=== PATIENT | male | born 1960 | race American Indian/Alaskan Native ===

== ENCOUNTER 2020-04-28 08:50 | Inpatient (IN) | payer BC ==
[2020-04-28] MEDS ORDERED: SODIUM CHLORIDE 0.9% 1000 ML 1,000 ML IV ONE (09:25)
[2020-04-28] MEDS ORDERED: ONDANSETRON 4 MG/2 ML INJ IV ONE (09:25)
--- NOTE | 2020-04-28 09:41 | Emergency Department Report ---
HPI - General Chief Complaint: Weakness Time Seen by Provider: 04/28/20 08:57 - HPI HPI: This is a 59-year-old -[place] male presents to the emergency department via EMS from home with a complaint of a 2-week history of generalized weakness, mixed dry and productive cough, intermittent shortness of breath, subjective fever, nausea with vomiting, decreased appetite, loss of taste and smell. The patient had a COVID-19 test done last Wednesday but has not yet received the results. He says that there are people at home with similar symptoms but they also have not yet received the results of the Covid test. He has a past medical history of [id number] diabetes and hypertension. No recent travel. Denies any tobacco or illicit drug use. He has not taken anything for his symptoms prior to presentation today. ED Past Medical Hx - Past Medical History Previous Medical History?: Yes Hx Hypertension: Yes Hx Diabetes: Yes - Social History Smoking Status: Never Smoker Substance Use Type: None ED Review of Systems ROS: Stated complaint: WEAKNESS Other details as noted in HPI Comment: All other systems reviewed and negative Constitutional: fever (Subjective), weakness Eyes: denies: eye pain, vision change ENT: denies: ear pain, throat pain Respiratory: cough, shortness of breath Cardiovascular: denies: chest pain, palpitations Gastrointestinal: nausea, vomiting. denies: abdominal pain Genitourinary: denies: dysuria, discharge Musculoskeletal: myalgia. denies: joint swelling Skin: denies: rash, lesions Neurological: denies: numbness, paresthesias Physical Exam - Physical Exam Vital Signs: Vital Signs 04/28/20 04/28/20 04/28/20 09:19 09:24 09:32 Temperature 98.7 F 98.7 F Pulse Rate 98 H 98 H Respiratory 20 20 20 Rate Blood Pressure 153/75 Blood Pressure 153/75 [Right] O2 Sat by Pulse 97 97 97 Oximetry Physical Exam: GENERAL: The patient is well-developed well-nourished. HENT: Normocephalic. Atraumatic. Patient has moist mucous membranes. EYES: Extraocular motions are intact. NECK: Supple. Trachea is midline. CHEST/LUNGS: Rhonchi heard bilaterally. Tachypnea but no accessory muscle use. A productive sounding cough heard during examination. HEART/CARDIOVASCULAR: Regular. There is no tachycardia. There is no murmur. ABDOMEN: Abdomen is soft, nontender. Patient has normal bowel sounds. SKIN: Skin is warm and dry. NEURO: The patient is awake, alert, and oriented. The patient is cooperative. The patient has no focal neurologic deficits. Normal speech. MUSCULOSKELETAL: There is no tenderness or deformity. There is no limitation range of motion. ED Course Vital Signs 04/28/20 04/28/20 04/28/20 09:19 09:24 09:32 Temperature 98.7 F 98.7 F Pulse Rate 98 H 98 H Respiratory 20 20 20 Rate Blood Pressure 153/75 Blood Pressure 153/75 [Right] O2 Sat by Pulse 97 97 97 Oximetry ED Medical Decision Making - Lab Data Result diagrams: 04/28/20 09:50 04/28/20 13:48 Lab Results 04/28/20 04/28/20 04/28/20 Range/Units 09:50 09:50 09:50 WBC 10.1 (4.5-11.0) K/mm3 RBC 3.02 L (3.65-5.03) M/mm3 Hgb 9.7 L (11.8-15.2) gm/dl Hct 28.3 L (35.5-45.6) % MCV 94 (84-94) fl MCH 32 (28-32) pg MCHC 35 H (32-34) % RDW 12.2 L (13.2-15.2) % Plt Count 353 (140-440) K/mm3 Lymph % (Auto) 8.9 L (13.4-35.0) % [place] % (Auto) 11.9 H (0.0-7.3) % Eos % (Auto) 4.4 H (0.0-4.3) % Baso % (Auto) 0.8 (0.0-1.8) % Lymph # (Auto) 0.9 L (1.2-5.4) K/mm3 [place] # (Auto) 1.2 H (0.0-0.8) K/mm3 Eos # (Auto) 0.4 (0.0-0.4) K/mm3 Baso # (Auto) 0.1 (0.0-0.1) K/mm3 Seg Neutrophils % 74.0 H (40.0-70.0) % Seg Neutrophils # 7.5 (1.8-7.7) K/mm3 Sodium 130 L (137-145) mmol/L Potassium 4.2 (3.6-5.0) mmol/L Chloride 93.9 L (98-107) mmol/L Carbon Dioxide 28 (22-30) mmol/L Anion Gap 12 mmol/L BUN 34 H (9-20) mg/dL Creatinine 1.1 (0.8-1.3) mg/dL Estimated GFR > 60 ml/min BUN/Creatinine Ratio 31 % Glucose 227 H (75-100) mg/dL Calcium 9.0 (8.4-10.2) mg/dL Total Bilirubin 0.80 (0.1-1.2) mg/dL AST 17 (5-40) units/L ALT 13 (7-56) units/L Alkaline Phosphatase 90 (35-129) units/L Troponin T < 0.010 (0.00-0.029) ng/mL Total Protein 7.4 (6.3-8.2) g/dL Albumin 3.0 L (3.9-5) g/dL Albumin/Globulin Ratio 0.7 % TSH 1.180 (0.270-4.200) mlU/mL - Radiology Data Radiology results: report reviewed, image reviewed interpreted by me: Chest x-ray shows patchy bilateral opacities concerning for pneumonia. No pneumothorax. No pleural effusions. CT angio chest INDICATION / CLINICAL INFORMATION: MAIN. TECHNIQUE: Axial CT images were obtained after injection of 100 cc of Omnipaque 350 IV contrast using CTA protocol. 3 plane MIP / 3D reconstructions were produced. All CT scans at this location are performed using CT dose reduction for ALARA by means of automated exposure control. COMPARISON: None available. FINDINGS: Following the injection of intravenous contrast, no filling defects are seen in the main pulmonary arteries or their branches. Extensive peripheral groundglass opacity is seen in both lungs. No enlarged mediastinal or hilar lymph nodes are identified. Other than degenerative change in the spine, no significant skeletal abnormality is seen. IMPRESSION: 1. No evidence of pulmonary embolus 2. Extensive peripheral bilateral groundglass opacity consistent with atypical or viral pneumonia - Medical Decision Making This patient presents to the emergency department with multiple complaints consistent with COVID-19 or a viral syndrome. Initially the patient had a room air pulse ox of about 94% and was placed on supplemental oxygen. During his ED course, we removed the supplemental oxygen and the patient went down to 90% without any exertion. Chest x-ray shows bilateral patchy groundglass opacities concerning for pneumonia and consistent with a viral or atypical pneumonia that is often seen with COVID-19. The patient was given some IV fluid resuscitation, Solu-Medrol, antibiotics. His initial labs show some leukopenia and mild hyperglycemia. COVID-19 labs were ordered and all came back elevated including D-dimer, LDH, CRP and ferritin levels. A CT angiography of the chest was completed that did not show any pulmonary embolism but once again shows diffuse groundglass opacities. Patient will be admitted to the hospital for further evaluation and treatment was accepted for admission by the hospitalist service. The patient was placed in patient isolation and droplet precautions immediately upon arrival to the main emergency department. I wore full PPE gear including a surgical hat, goggles, N95 mask, surgical mask, gown, and double gloves for every encounter. Critical Care Time: Yes Critical care time in (mins) excluding proc time.: 35 Critical care attestation.: If time is entered above; I have spent that time in minutes in the direct care of this critically ill patient, excluding procedure time. Critical care time was spent on this patient in doing his initial evaluation, multiple reevaluations, ordering and interpretation of labs and imaging, IV fluid resuscitation, IV steroids, IV antibiotics, supplemental oxygen for the hypoxia, multiple discussions with the patient. Critical Care Time: 35 minutes. ED Disposition Clinical Impression: Suspected 2019 novel coronavirus infection, Hypoxemia Bilateral pneumonia Qualifiers: Pneumonia type: due to unspecified organism Lung location: unspecified part of lung Qualified Code(s): J18.9 - Pneumonia, unspecified organism Disposition: -09 OP ADMIT IP TO THIS HOSP Is pt being admited?: Yes Condition: Serious Time of Disposition: 10:47
--- NOTE | 2020-04-28 09:54 | XRay Report ---
CHEST 1 VIEW 04/28/2020 8:48 AM INDICATION / CLINICAL INFORMATION: cough. COMPARISON: None available. FINDINGS: SUPPORT DEVICES: None. HEART / MEDIASTINUM: No significant abnormality. LUNGS / PLEURA: There are diffuse bilateral patchy pulmonary opacities. No pneumothorax. ADDITIONAL FINDINGS: No significant additional findings. IMPRESSION: 1. Diffuse patchy bilateral pulmonary opacities are concerning for an infectious process. Viral and a typical etiologies should be considered. Signer Name: Jon King MD Signed: 04/28/2020 9:50 AM Workstation Name: [id number]
[2020-04-28 09:57] LABS: Basophils # (Auto) 0.1 K/mm3 (0.0-0.1); Basophils % (Auto) 0.8 % (0.0-1.8); Eosinophils # (Auto) 0.4 K/mm3 (0.0-0.4); Eosinophils % (Auto) 4.4 % (0.0-4.3); Hematocrit 28.3 % (35.5-45.6); Hemoglobin 9.7 gm/dl (11.8-15.2); Lymphocytes # (Auto) 0.9 K/mm3 (1.2-5.4); Lymphocytes % (Auto) 8.9 % (13.4-35.0); Mean Corpuscular HGB Conc 35 % (32-34); Mean Corpuscular Volume 94 fl (84-94); Monocytes # (Auto) 1.2 K/mm3 (0.0-0.8); Monocytes % (Auto) 11.9 % (0.0-7.3); Platelet Count 353 K/mm3 (140-440); Red Blood Count 3.02 M/mm3 (3.65-5.03); Red Cell Distribution Width 12.2 % (13.2-15.2)
[2020-04-28] MEDS ORDERED: methylPREDNISolone Sod Succinate 125 MG/2 ML INJ IV ONE (10:07)
[2020-04-28] MEDS ORDERED: AZITHROMYCIN/NS 500 MG/250 ML 500 MG/250 ML BAG IV ONE (10:07)
[2020-04-28 10:21] LABS: Alanine Aminotransferase 13 units/L (7-56); BUN/Creatinine Ratio 31; Blood Urea Nitrogen 34 mg/dL (9-20); Hemolysis Index 6
[2020-04-28] MEDS ORDERED: DEXTROSE 50% IN WATER (25GM) 50 ML SYRINGE IV PRN (11:40)
--- NOTE | 2020-04-28 11:42 | History and Physical Report ---
History of Present Illness Date of examination: 04/28/20 Date of admission: 04/28 Chief complaint: Shortness of breath History of present illness: 60-year-old male with a medical history of hypertension, diabetes presented to emergency room with chief complaint of generalized weakness and shortness of breath. Patient states that symptoms started about 2 weeks prior to presentation. He initially started having productive cough, fever, nausea with vomiting, decreased appetite, loss of taste and smell and symptoms started later progressed to problems breathing about a week prior to presentation. Patient had a Covid test performed on Wednesday [04/23] and results still pending as per patient. He mentions that some family members have similar symptoms and they have not been diagnosed with Covid yet as results are still pending. He denies any chest pain or palpitations. Past History Past Medical History: diabetes, hypertension Past Surgical History: No surgical history Social history: no significant social history Family history: no significant family history Medications and Allergies Allergies Allergy/AdvReac Type Severity Reaction Status Date / Time No Known Allergies Allergy Verified 04/28/20 11:42 Review of Systems All systems: negative (Shortness of breath with exertion) Exam - Constitutional Vitals: Temp Pulse Resp BP Pulse Ox 98.7 F 98 H 20 153/75 97 04/28/20 09:24 04/28/20 09:24 04/28/20 09:32 04/28/20 09:24 04/28/20 09:32 General appearance: Present: no acute distress, well-nourished - EENT Eyes: Present: PERRL ENT: hearing intact, clear oral mucosa - Neck Neck: Present: supple, normal ROM - Respiratory Respiratory effort: normal Respiratory: bilateral: CTA - Cardiovascular Heart Sounds: Present: S1 & S2. Absent: rub, click - Extremities Extremities: pulses symmetrical, No edema Peripheral Pulses: within normal limits - Abdominal General gastrointestinal: Present: soft, non-tender, non-distended, normal bowel sounds Male genitourinary: Present: normal - Integumentary Integumentary: Present: clear, warm, dry - Musculoskeletal Musculoskeletal: gait normal, strength equal bilaterally - Psychiatric Psychiatric: appropriate mood/affect, intact judgment & insight - Neurologic Neurologic: CNII-XII intact, moves all extremities HEART Score - HEART Score Troponin: Troponin T < 0.010 ng/mL (0.00-0.029) 04/28/20 09:50 Results - Labs CBC & Chem 7: 04/28/20 09:50 04/28/20 09:50 Labs: Laboratory Last Values WBC 10.1 K/mm3 (4.5-11.0) 04/28/20 09:50 RBC 3.02 M/mm3 (3.65-5.03) L 04/28/20 09:50 Hgb 9.7 gm/dl (11.8-15.2) L 04/28/20 09:50 Hct 28.3 % (35.5-45.6) L 04/28/20 09:50 MCV 94 fl (84-94) 04/28/20 09:50 MCH 32 pg (28-32) 04/28/20 09:50 MCHC 35 % (32-34) H 04/28/20 09:50 RDW 12.2 % (13.2-15.2) L 04/28/20 09:50 Plt Count 353 K/mm3 (140-440) 04/28/20 09:50 Lymph % (Auto) 8.9 % (13.4-35.0) L 04/28/20 09:50 [place] % (Auto) 11.9 % (0.0-7.3) H 04/28/20 09:50 Eos % (Auto) 4.4 % (0.0-4.3) H 04/28/20 09:50 Baso % (Auto) 0.8 % (0.0-1.8) 04/28/20 09:50 Lymph # (Auto) 0.9 K/mm3 (1.2-5.4) L 04/28/20 09:50 [place] # (Auto) 1.2 K/mm3 (0.0-0.8) H 04/28/20 09:50 Eos # (Auto) 0.4 K/mm3 (0.0-0.4) 04/28/20 09:50 Baso # (Auto) 0.1 K/mm3 (0.0-0.1) 04/28/20 09:50 Seg Neutrophils % 74.0 % (40.0-70.0) H 04/28/20 09:50 Seg Neutrophils # 7.5 K/mm3 (1.8-7.7) 04/28/20 09:50 Sodium 130 mmol/L (137-145) L 04/28/20 09:50 Potassium 4.2 mmol/L (3.6-5.0) 04/28/20 09:50 Chloride 93.9 mmol/L (98-107) L 04/28/20 09:50 Carbon Dioxide 28 mmol/L (22-30) 04/28/20 09:50 Anion Gap 12 mmol/L 04/28/20 09:50 BUN 34 mg/dL (9-20) H 04/28/20 09:50 Creatinine 1.1 mg/dL (0.8-1.3) 04/28/20 09:50 Estimated GFR > 60 ml/min 04/28/20 09:50 BUN/Creatinine Ratio 31 % 04/28/20 09:50 Glucose 227 mg/dL (75-100) H 04/28/20 09:50 Calcium 9.0 mg/dL (8.4-10.2) 04/28/20 09:50 Total Bilirubin 0.80 mg/dL (0.1-1.2) 04/28/20 09:50 AST 17 units/L (5-40) 04/28/20 09:50 ALT 13 units/L (7-56) 04/28/20 09:50 Alkaline Phosphatase 90 units/L (35-129) 04/28/20 09:50 Lactate Dehydrogenase 307 units/L (91-180) H 04/28/20 10:49 Troponin T < 0.010 ng/mL (0.00-0.029) 04/28/20 09:50 C-Reactive Protein 13.00 mg/dL (0.00-1.30) H 04/28/20 10:49 Total Protein 7.4 g/dL (6.3-8.2) 04/28/20 09:50 Albumin 3.0 g/dL (3.9-5) L 04/28/20 09:50 Albumin/Globulin Ratio 0.7 % 04/28/20 09:50 TSH 1.180 mlU/mL (0.270-4.200) 04/28/20 09:50 Christianson/IV: IV Catheter Type [Left Peripheral IV Antecubital] Assessment and Plan Assessment and plan: Acute hypoxic respiratory failure Possible COVID-19 pneumonia. COVID-19 test ordered Continue oxygen supplementation D-dimer elevated [more than 10,000]-we will start patient on Lovenox while we wait for confirmatory CTA chest. Bilateral pneumonia Chest x-ray showed bilateral infiltrates suggestive of possible COVID-19 pneumonia Likely COVID-19 pneumonia given symptoms, labs and chest x-ray. COVID-19 test ordered Start ceftriaxone and azithromycin x5 days. Check procalcitonin Dexamethasone 6 mg x 10 days ID consulted Trend inflammatory markers Incentive spirometer Oxygen supplementation-continuous pulse ox Telemetry monitoring Elevated D-dimer D-dimer more than 10,000 Started on therapeutic Lovenox. Switch to prophylactic dose if CTA chest and ultrasound come out negative CTA chest ordered Ultrasound Doppler lower extremities ordered Diabetes mellitus Patient takes Metformin at home Start lispro sliding scale Blood glucose AC at bedtime Hypertension Patient takes lisinopril at home. Unsure of dose Resume lisinopril 5 mg for now Hyponatremia Patient states that he has been drinking a lot of water Trend sodium levels Check urine electrolytes, osmolality and serum osmolality DVT prophylaxis-Lovenox full dose for now Full code
[2020-04-28] MEDS ORDERED: ENOXAPARIN 100 MG/1 ML INJ SUB-Q SCH (13:00)
--- NOTE | 2020-04-28 13:28 | Cat Scan Report ---
CT angio chest INDICATION / CLINICAL INFORMATION: MAIN. TECHNIQUE: Axial CT images were obtained after injection of 100 cc of Omnipaque 350 IV contrast using CTA protoc ol. 3 plane MIP / 3D reconstructions were produced. All CT scans at this location are performed using CT dose reduction for ALARA by means of automated exposure control. COMPARISON: None available. FINDINGS: Following the injection of intravenous contrast, no filling defects are seen in the main pulmonary ar teries or their branches. Extensive peripheral groundglass opacity is seen in both lungs. No enlarged mediastinal or hilar lymph nodes are identified. Other than degenerative change in the spine, no sig nificant skeletal abnormality is seen. IMPRESSION: 1. No evidence of pulmonary embolus 2. Extensive peripheral bilateral groundglass opacity consistent with atypical or viral pneumonia Signer Name: Clarence King MD FACR Signed: 04/28/2020 1:24 PM Workstation Name: [id number]
[2020-04-28] MEDS: cefTRIAXone/NS 1 GM/50 ML 1 GM/50 ML BAG IV SCH (18:06)
[2020-04-28] MEDS: ENOXAPARIN 60 MG/0.6 ML INJ SUB-Q SCH ×2 (18:06→22:23)
[2020-04-28] MEDS: INSULIN REGULAR, HUMAN 100 UNITS/1 ML SUB-Q SCH ×2 (18:07→22:24)
--- NOTE | 2020-04-28 20:53 | Vascular Lab Report ---
DUPLEX DOPPLER LOWER EXTREMITY VEINS, BILATERAL INDICATION / CLINICAL INFORMATION: DVT rule out. TECHNIQUE: Duplex doppler imaging was performed through the veins of both lower extremities using venous blaise precious and other maneuvers. COMPARISON: None available. FINDINGS: RIGHT COMMON FEMORAL VEIN: Negative. RIGHT FEMORAL VEIN: Negative. RIGHT POPLITEAL VEIN: Negative. RIGHT CALF VEINS: Negative. LEFT COMMON FEMORAL VEIN: Negative. LEFT FEMORAL VEIN: Negative. LEFT POPLITEAL VEIN: Negative. LEFT CALF VEINS: Negative. ADDITIONAL FINDINGS: None. IMPRESSION: No sonographic evidence for DVT in either lower extremity. Signer Name: Jon King MD Signed: 04/28/2020 8:49 PM Workstation Name: [id number]
[2020-04-28] MEDS ORDERED: ACETAMINOPHEN 325 MG TAB PO PRN (23:05)
[2020-04-28] MEDS: hydrALAZINE 20 MG/1 ML INJ IV PRN (23:57)
[2020-04-28] MEDS: guaiFENesin DM 200/20 MG ORAL LIQD 10 ML PO PRN (23:57)
[2020-04-29] MEDS: INSULIN REGULAR, HUMAN 100 UNITS/1 ML SUB-Q SCH ×4 (07:30→22:32)
[2020-04-29 07:45] LABS: Basophils # (Auto) 0.1 K/mm3 (0.0-0.1); Basophils % (Auto) 0.4 % (0.0-1.8); Eosinophils % (Auto) 0.1 % (0.0-4.3); Hematocrit 29.5 % (35.5-45.6); Hemoglobin 10.2 gm/dl (11.8-15.2); Lymphocytes # (Auto) 0.8 K/mm3 (1.2-5.4); Lymphocytes % (Auto) 5.6 % (13.4-35.0); Mean Corpuscular HGB Conc 35 % (32-34); Mean Corpuscular Volume 93 fl (84-94); Monocytes # (Auto) 1.4 K/mm3 (0.0-0.8); Monocytes % (Auto) 10.3 % (0.0-7.3); Platelet Count 423 K/mm3 (140-440); Red Blood Count 3.15 M/mm3 (3.65-5.03); Red Cell Distribution Width 12.3 % (13.2-15.2)
[2020-04-29 08:04] LABS: Calcium 9.3 mg/dL (8.4-10.2)
[2020-04-29 08:05] LABS: Albumin 3.3 g/dL (3.9-5); C-Reactive Protein 9.6 mg/dL (0.00-1.30)
--- NOTE | 2020-04-29 09:27 | Progress Note ---
Assessment and Plan Assessment and plan: 60-year-old male with a medical history of hypertension, diabetes presented to emergency room with chief complaint of generalized weakness and shortness of breath. Patient states that symptoms started about 2 weeks prior to presentation. He initially started having productive cough, fever, nausea with vomiting, decreased appetite, loss of taste and smell and symptoms started later progressed to problems breathing about a week prior to presentation. Patient had a Covid test performed on Wednesday [04/23] and results still pending as per patient. He mentions that some family members have similar symptoms and they have not been diagnosed with Covid yet as results are still pending. He denies any chest pain or palpitations. 04/29/2020. Patient seen and examined at bedside this a.m. He has no complaints. CTA chest and ultrasound Doppler negative for PE. Lovenox switched to prophylactic dose. Pulmonology consulted for respiratory failure. Labs reviewed-creatinine bumped up to 1.6. Hold lisinopril for now. Consulted nephrology. Insulin dose increased due to hyperglycemia. Still awaiting COVID- 19 test. Continue ceftriaxone, azithromycin and dexamethasone. Awaiting ID evaluation Problems Acute hypoxic respiratory failure Possible COVID-19 pneumonia. COVID-19 test ordered Continue oxygen supplementation Bilateral pneumonia Chest x-ray showed bilateral infiltrates suggestive of possible COVID-19 pneumonia Likely COVID-19 pneumonia given symptoms, labs and chest x-ray. COVID-19 test ordered Continue ceftriaxone and azithromycin x5 days. Dexamethasone 6 mg x 10 days ID consulted Pulm consulted Trend inflammatory markers Incentive spirometer Oxygen supplementation-continuous pulse ox Telemetry monitoring Elevated D-dimer D-dimer more than 10,000. Likely secondary to COVID-19 Started on therapeutic Lovenox but CTA and ultrasound Doppler negative for any clots so we switched to prophylactic dose of Lovenox Diabetes mellitus Patient takes Metformin at home. Hold for now Start lispro sliding scale. Added Lantus Continue to monitor blood glucose closely as patient is on dexamethasone Hypertension Patient takes lisinopril at home. Hold lisinopril given bump in creatinine Hyponatremia Patient states that he has been drinking a lot of water Labs reviewed. Urine osmolality normal. Likely SIADH 2/2 lung infection. TSH wnl. Trend sodium levels LALA Bump in creatinine noted. Secondary to vasomotor nephropathy Hold lisinopril Nephrology consulted DVT prophylaxis-Lovenox Full code History Interval history: Patient seen and examined at bedside this morning 6 L of oxygen [was on 2 L of oxygen during my encounter with him yesterday] ID evaluation pending. Pulmonology consulted Awaiting COVID-19 test Hospitalist Physical - Physical exam Narrative exam: VITAL SIGNS: Reviewed. GENERAL: Awake, obese HEAD: No signs of head trauma. EYES: Pupils are equal. Extraocular motions intact. MOUTH: Oropharynx is normal. NECK: No adenopathy, no JVD. CHEST: Diminished breath sounds bilaterally CARDIAC: normal S1 and S2, without murmurs, gallops, or rubs. ABDOMEN: Soft, non tender and non distended. No rebound or guarding, and no masses palpated. Bowel Sounds normal. MUSCULOSKELETAL: No edema NEUROLOGIC EXAM: Alert and oriented x3. No focal neurologic deficits SKIN: No obvious lesions - Constitutional Vitals: Temp Pulse Resp BP Pulse Ox 98.8 F 100 H 20 159/84 94 04/29/20 05:11 04/29/20 05:11 04/29/20 05:11 04/29/20 05:11 04/29/20 05:11 HEART Score - HEART Score Troponin: Troponin T < 0.010 ng/mL (0.00-0.029) 04/28/20 09:50 Results - Labs CBC & Chem 7: 04/29/20 07:06 04/29/20 07:06 Labs: Laboratory Last Values WBC 13.6 K/mm3 (4.5-11.0) H 04/29/20 07:06 RBC 3.15 M/mm3 (3.65-5.03) L 04/29/20 07:06 Hgb 10.2 gm/dl (11.8-15.2) L 04/29/20 07:06 Hct 29.5 % (35.5-45.6) L 04/29/20 07:06 MCV 93 fl (84-94) 04/29/20 07:06 MCH 32 pg (28-32) 04/29/20 07:06 MCHC 35 % (32-34) H 04/29/20 07:06 RDW 12.3 % (13.2-15.2) L 04/29/20 07:06 Plt Count 423 K/mm3 (140-440) 04/29/20 07:06 Lymph % (Auto) 5.6 % (13.4-35.0) L 04/29/20 07:06 [place] % (Auto) 10.3 % (0.0-7.3) H 04/29/20 07:06 Eos % (Auto) 0.1 % (0.0-4.3) 04/29/20 07:06 Baso % (Auto) 0.4 % (0.0-1.8) 04/29/20 07:06 Lymph # (Auto) 0.8 K/mm3 (1.2-5.4) L 04/29/20 07:06 [place] # (Auto) 1.4 K/mm3 (0.0-0.8) H 04/29/20 07:06 Eos # (Auto) 0.0 K/mm3 (0.0-0.4) 04/29/20 07:06 Baso # (Auto) 0.1 K/mm3 (0.0-0.1) 04/29/20 07:06 Seg Neutrophils % 83.6 % (40.0-70.0) H 04/29/20 07:06 Seg Neutrophils # 11.4 K/mm3 (1.8-7.7) H 04/29/20 07:06 D-Dimer > 09307 ng/mlDDU (0-234) H 04/29/20 07:06 Sodium 131 mmol/L (137-145) L 04/29/20 07:06 Potassium 4.6 mmol/L (3.6-5.0) 04/29/20 07:06 Chloride 95.3 mmol/L (98-107) L 04/29/20 07:06 Carbon Dioxide 25 mmol/L (22-30) 04/29/20 07:06 Anion Gap 15 mmol/L 04/29/20 07:06 BUN 41 mg/dL (9-20) H 04/29/20 07:06 Creatinine 1.6 mg/dL (0.8-1.3) H 04/29/20 07:06 Estimated GFR 54 ml/min 04/29/20 07:06 BUN/Creatinine Ratio 26 % 04/29/20 07:06 Glucose 460 mg/dL (75-100) H 04/29/20 07:06 POC Glucose 396 mg/dL (70-105) H 04/28/20 21:53 Hemoglobin A1c 9.3 % (4-6) H 04/29/20 07:06 Osmolality 310 Mosm/kg 04/29/20 07:06 Calcium 9.3 mg/dL (8.4-10.2) 04/29/20 07:06 Ferritin 1617.0 ng/mL (30.0-300.0) H 04/29/20 07:06 Total Bilirubin 0.60 mg/dL (0.1-1.2) 04/29/20 07:06 AST 17 units/L (5-40) 04/29/20 07:06 ALT 15 units/L (7-56) 04/29/20 07:06 Alkaline Phosphatase 101 units/L (35-129) 04/29/20 07:06 Lactate Dehydrogenase 313 units/L (91-180) H 04/29/20 07:06 Troponin T < 0.010 ng/mL (0.00-0.029) 04/28/20 09:50 C-Reactive Protein 9.60 mg/dL (0.00-1.30) H 04/29/20 07:06 Total Protein 7.8 g/dL (6.3-8.2) 04/29/20 07:06 Albumin 3.3 g/dL (3.9-5) L 04/29/20 07:06 Albumin/Globulin Ratio 0.7 % 04/29/20 07:06 Procalcitonin 0.10 ng/mL (<0.15) 04/28/20 10:49 TSH 1.180 mlU/mL (0.270-4.200) 04/28/20 09:50 Urine Osmolality 450 Mosm/kg 04/29/20 03:30 Microbiology: Microbiology 04/28/20 10:49 Peripheral/Venous Blood Culture - Preliminary Culture in Progress 04/28/20 10:49 Peripheral/Venous Blood Culture - Preliminary Culture in Progress Christianson/IV: Voiding Method Urinal IV Catheter Type [Left Peripheral IV Antecubital] Active Medications - Current Medications Current Medications: Generic Name Dose Route Start Last Admin Trade Name Freq PRN Reason Stop Dose Admin Acetaminophen 650 mg 04/28/20 23:05 Acetaminophen 325 Mg Tab PO Q6H PRN Pain, Mild (1-3) Ascorbic Acid 500 mg 04/29/20 10:00 Ascorbic Acid 500 Mg Tab PO QDAY MARIA L Azithromycin 250 mg 04/29/20 10:00 Azithromycin 250 Mg Tab PO 05/02/20 09:59 DAILY [facility] Protocol Dexamethasone 6 mg 04/29/20 10:00 Dexamethasone 4 Mg/Ml Vial IV 05/08/20 10:01 DAILY MARIA L Dextrose 50 ml 04/28/20 11:40 Dextrose 50% In Water (25gm) 50 Ml Syringe IV Q30MIN PRN Hypoglycemia Protocol Enoxaparin Sodium 110 mg 04/29/20 10:00 Enoxaparin 120 Mg/0.8 Ml Inj SUB-Q Q12HR MARIA L Guaifenesin 10 ml 04/28/20 23:04 04/28/20 23:57 Guaifenesin Dm 200/20 Mg Oral Liqd 10 Ml PO 10 ml Q8HR PRN Administration Cough Hydralazine HCl 10 mg 04/28/20 23:02 04/28/20 23:57 Hydralazine 20 Mg/1 Ml Inj IV 10 mg Q6HR PRN Administration Blood Pressure Ceftriaxone Sodium 1 gm in 50 mls @ 100 mls/hr 04/28/20 12:00 04/28/20 18:06 Rocephin/Ns 1 Gm/50 Ml IV 100 mls/hr Q24H [facility] Administration Protocol Insulin Glargine 20 units 04/29/20 09:19 Insulin Glargine 100 Units/Ml SUB-Q 04/29/20 09:20 ONCE ONE Insulin Glargine 15 units 04/29/20 18:00 Insulin Glargine 100 Units/Ml SUB-Q BID [facility] Insulin Human Regular 0 units 04/29/20 07:30 04/29/20 07:30 Insulin Regular, Human 100 Units/1 Ml SUB-Q 10 units ACHS [facility] Administration Protocol Zinc Sulfate 220 mg 04/29/20 10:00 Zinc Sulfate 220 Mg Cap PO QDAY [facility]
[2020-04-29] MEDS ORDERED: INSULIN GLARGINE 100 UNITS/ML SUB-Q NR (10:00)
[2020-04-29] MEDS ORDERED: ENOXAPARIN 120 MG/0.8 ML INJ SUB-Q SCH (10:00)
[2020-04-29] MEDS: dexAMETHasone 4 MG/ML VIAL IV SCH (10:01)
[2020-04-29] MEDS: ASCORBIC ACID 500 MG TAB PO SCH (10:01)
[2020-04-29] MEDS: ENOXAPARIN 30 MG/0.3 ML INJ SUB-Q SCH ×2 (10:01→22:33)
[2020-04-29] MEDS: AZITHROMYCIN 250 MG TAB PO SCH (10:01)
[2020-04-29] MEDS: ZINC SULFATE 220 MG CAP PO SCH (10:02)
--- NOTE | 2020-04-29 10:15 | Consultation ---
History of Present Illness - Reason for Consult Consult date: 04/29/20 acute renal failure - History of Present Illness This is a 60-year-old male who presented to the [facility] chief complaint of shortness of breath and weakness present approximately 2 weeks ago with associated fever, cough, decreased appetite and N/V. Information is being obtained from chart and staff as patient is not seen or examined directly due to being tested for suspicion of COVID given his symptoms and he has not yet been ruled out. He has family memebers with similar symptoms who are also awaiting their COVID test results per report. Of note patient's CXR revealed ground glass opacities concerning for infectious process. Pertinent labs revealed an elevated serum creatinine of 1.6 today and it was 1.1 yesterday. Patient has history of Hypertension and Diabetes Mellitus. We are being consulted for management of this patient's Acute Renal Failure. Past History Past Medical History: diabetes, hypertension Past Surgical History: No surgical history Social history: no significant social history Family history: no significant family history Medications and Allergies Allergies Allergy/AdvReac Type Severity Reaction Status Date / Time No Known Allergies Allergy Verified 04/28/20 11:42 Home Medications Medication Instructions Recorded Confirmed Last Taken Type Alogliptin Benzoate [Alogliptin] 25 mg PO DAILY 04/28/20 04/28/20 04/28/20 10:00 History Aspirin [Adult Aspirin] 81 mg PO DAILY 04/28/20 04/28/20 04/28/20 10:00 History Atorvastatin [Lipitor Tab] 40 mg PO DAILY 04/28/20 04/28/20 04/28/20 10:00 History Cholecalciferol Vit D3 [Vitamin D3 2 1000units PO DAILY 04/28/20 04/28/20 04/28/20 10:00 History 1,000 UNIT TAB] Gabapentin [Neurontin] 100 mg PO TID 04/28/20 04/28/20 04/28/20 10:00 History Metformin HCl [metFORMIN ER 500 mg PO BID 04/28/20 04/28/20 Unknown History Osmotic] lisinopriL [Zestril] 20 mg PO QDAY 04/28/20 04/28/20 04/28/20 10:00 History Active Meds: Active Medications Acetaminophen (Acetaminophen 325 Mg Tab) 650 mg PO Q6H PRN PRN Reason: Pain, Mild (1-3) Ascorbic Acid (Ascorbic Acid 500 Mg Tab) 500 mg PO QDAY [facility] Last Admin: 04/29/20 10:01 Dose: 500 mg Documented by: Azithromycin (Azithromycin 250 Mg Tab) 250 mg PO DAILY [facility]; Protocol Stop: 05/02/20 09:59 Last Admin: 04/29/20 10:01 Dose: 250 mg Documented by: Dexamethasone (Dexamethasone 4 Mg/Ml Vial) 6 mg IV DAILY [facility] Stop: 05/08/20 10:01 Last Admin: 04/29/20 10:01 Dose: 6 mg Documented by: Dextrose (Dextrose 50% In Water (25gm) 50 Ml Syringe) 50 ml IV Q30MIN PRN; Protocol PRN Reason: Hypoglycemia Enoxaparin Sodium (Enoxaparin 30 Mg/0.3 Ml Inj) 30 mg SUB-Q BID [facility]; Protocol Last Admin: 04/29/20 10:01 Dose: 30 mg Documented by: Guaifenesin (Guaifenesin Dm 200/20 Mg Oral Liqd 10 Ml) 10 ml PO Q8HR PRN PRN Reason: Cough Last Admin: 04/28/20 23:57 Dose: 10 ml Documented by: Hydralazine HCl (Hydralazine 20 Mg/1 Ml Inj) 10 mg IV Q6HR PRN PRN Reason: Blood Pressure Last Admin: 04/28/20 23:57 Dose: 10 mg Documented by: Ceftriaxone Sodium (Rocephin/Ns 1 Gm/50 Ml) 1 gm in 50 mls @ 100 mls/hr IV Q24H [facility]; Protocol Last Admin: 04/28/20 18:06 Dose: 100 mls/hr Documented by: Insulin Glargine (Insulin Glargine 100 Units/Ml) 20 units SUB-Q ONCE@1000 NR Stop: 04/29/20 12:00 Insulin Glargine (Insulin Glargine 100 Units/Ml) 15 units SUB-Q BID [facility] Insulin Human Regular (Insulin Regular, Human 100 Units/1 Ml) 0 units SUB-Q ACHS [facility]; Protocol Last Admin: 04/29/20 07:30 Dose: 10 units Documented by: Zinc Sulfate (Zinc Sulfate 220 Mg Cap) 220 mg PO QDAY [facility] Last Admin: 04/29/20 10:02 Dose: 220 mg Documented by: Exam - Vital Signs Vital signs: Vital Signs Temp Pulse Resp BP Pulse Ox 98.7 F 98 H 20 153/75 97 04/28/20 09:19 04/28/20 09:19 04/28/20 09:19 04/28/20 09:19 04/28/20 09:19 Results - Lab Results 04/29/20 07:06 04/29/20 07:06 Most recent lab results Calcium 9.3 mg/dL (8.4-10.2) 04/29/20 07:06 Assessment and Plan Assessment: Acute Renal Failure secondary to prerenal etiology vs ATN R/O COVID-19 Bilateral Pneumonia Hypertension Diabetes Mellitus Plan: Renal labs reviewed. Serum creatinine 1.6 today, was 1.1 yesterday Obtain urine lytes, eosinophils and protein labs Obtain renal ultrasound CXR-showed ground glass opacities concerning for infectious process On IV antibiotics Start gentle NS@ 50 ml/hr Obtain daily weights Monitor I/O's daily Avoid nephrotoxic agents Monitor renal function closely
[2020-04-29] MEDS: cefTRIAXone/NS 1 GM/50 ML 1 GM/50 ML BAG IV SCH (12:04)
[2020-04-29] MEDS: SODIUM CHLORIDE 0.9% 1000 ML 1,000 ML IV SCH ×2 (12:05→16:23)
--- NOTE | 2020-04-29 12:05 | Consultation ---
History of Present Illness Consult date: 04/29/20 Requesting physician: CLARENCE SHAH Reason for consult: hypoxemia, abnormal CXR/CT History of present illness: 59-year-old male with a medical history of hypertension, diabetes presented to emergency room with chief complaint of generalized weakness and shortness of breath. Patient states that symptoms started about 2 weeks prior to presentation. He initially started having productive cough, fever, nausea with vomiting, decreased appetite, loss of taste and smell and symptoms started later progressed to problems breathing about a week prior to presentation. Patient had a Covid test performed on Wednesday [04/23] and results still pending as per patient. He mentions that some family members have similar symptoms and they have not been diagnosed with Covid yet as results are still pending. He denies any chest pain or palpitations. He is currently on 6 liters NC with sats in the mid 90's yesterday he was at 5 liters. Pulmonary consulted today. Past History Past Medical History: diabetes, hypertension Past Surgical History: No surgical history Social history: no significant social history Family history: no significant family history Medications and Allergies Allergies Allergy/AdvReac Type Severity Reaction Status Date / Time No Known Allergies Allergy Verified 04/28/20 11:42 Home Medications Medication Instructions Recorded Confirmed Last Taken Type Alogliptin Benzoate [Alogliptin] 25 mg PO DAILY 04/28/20 04/28/20 04/28/20 10:00 History Aspirin [Adult Aspirin] 81 mg PO DAILY 04/28/20 04/28/20 04/28/20 10:00 History Atorvastatin [Lipitor Tab] 40 mg PO DAILY 04/28/20 04/28/20 04/28/20 10:00 History Cholecalciferol Vit D3 [Vitamin D3 2 1000units PO DAILY 04/28/20 04/28/20 10:00 History 1,000 UNIT TAB] Gabapentin [Neurontin] 100 mg PO TID 04/28/20 04/28/20 04/28/20 10:00 History Metformin HCl [metFORMIN ER 500 mg PO BID 04/28/20 04/28/20 Unknown History Osmotic] lisinopriL [Zestril] 20 mg PO QDAY 04/28/20 04/28/20 04/28/20 10:00 History Active Meds: Active Medications Acetaminophen (Acetaminophen 325 Mg Tab) 650 mg PO Q6H PRN PRN Reason: Pain, Mild (1-3) Ascorbic Acid (Ascorbic Acid 500 Mg Tab) 500 mg PO QDAY [facility] Last Admin: 04/29/20 10:01 Dose: 500 mg Documented by: Azithromycin (Azithromycin 250 Mg Tab) 250 mg PO DAILY [facility]; Protocol Stop: 05/02/20 09:59 Last Admin: 04/29/20 10:01 Dose: 250 mg Documented by: Dexamethasone (Dexamethasone 4 Mg/Ml Vial) 6 mg IV DAILY [facility] Stop: 05/08/20 10:01 Last Admin: 04/29/20 10:01 Dose: 6 mg Documented by: Dextrose (Dextrose 50% In Water (25gm) 50 Ml Syringe) 50 ml IV Q30MIN PRN; Protocol PRN Reason: Hypoglycemia Enoxaparin Sodium (Enoxaparin 30 Mg/0.3 Ml Inj) 30 mg SUB-Q BID [facility]; Protocol Last Admin: 04/29/20 10:01 Dose: 30 mg Documented by: Guaifenesin (Guaifenesin Dm 200/20 Mg Oral Liqd 10 Ml) 10 ml PO Q8HR PRN PRN Reason: Cough Last Admin: 04/28/20 23:57 Dose: 10 ml Documented by: Hydralazine HCl (Hydralazine 20 Mg/1 Ml Inj) 10 mg IV Q6HR PRN PRN Reason: Blood Pressure Last Admin: 04/28/20 23:57 Dose: 10 mg Documented by: Ceftriaxone Sodium (Rocephin/Ns 1 Gm/50 Ml) 1 gm in 50 mls @ 100 mls/hr IV Q24H [facility]; Protocol Last Admin: 04/28/20 18:06 Dose: 100 mls/hr Documented by: Sodium Chloride (Nacl 0.9% 1000 Ml) 1,000 mls @ 50 mls/hr IV DIRECT [facility] Insulin Glargine (Insulin Glargine 100 Units/Ml) 15 units SUB-Q BID [facility] Insulin Human Regular (Insulin Regular, Human 100 Units/1 Ml) 0 units SUB-Q ACHS [facility]; Protocol Last Admin: 04/29/20 07:30 Dose: 10 units Documented by: Zinc Sulfate (Zinc Sulfate 220 Mg Cap) 220 mg PO QDAY [facility] Last Admin: 04/29/20 10:02 Dose: 220 mg Documented by: Physical Examination Vital signs: Vital Signs Temp Pulse Resp BP Pulse Ox 98.7 F 98 H 20 153/75 97 04/28/20 09:19 04/28/20 09:19 04/28/20 09:19 04/28/20 09:19 04/28/20 09:19 Results - Laboratory Findings CBC and BMP: 04/29/20 07:06 04/29/20 07:06 PT/INR, D-dimer D-Dimer > 00139 ng/mlDDU (0-234) H 04/29/20 07:06 Abnormal lab findings: Abnormal Labs 04/28/20 04/28/20 04/28/20 09:50 09:50 10:49 WBC RBC 3.02 L Hgb 9.7 L Hct 28.3 L MCHC 35 H RDW 12.2 L Lymph % (Auto) 8.9 L [place] % (Auto) 11.9 H Eos % (Auto) 4.4 H Lymph # (Auto) 0.9 L [place] # (Auto) 1.2 H Seg Neutrophils % 74.0 H Seg Neutrophils # D-Dimer > 20549 H Sodium 130 L Chloride 93.9 L BUN 34 H Creatinine Glucose 227 H POC Glucose Hemoglobin A1c Ferritin Lactate Dehydrogenase C-Reactive Protein Albumin 3.0 L 04/28/20 04/28/20 04/28/20 10:49 10:49 13:48 WBC RBC Hgb Hct MCHC RDW Lymph % (Auto) [place] % (Auto) Eos % (Auto) Lymph # (Auto) [place] # (Auto) Seg Neutrophils % Seg Neutrophils # D-Dimer Sodium 131 L Chloride 95.6 L BUN Creatinine Glucose POC Glucose Hemoglobin A1c Ferritin 1467.0 H Lactate Dehydrogenase 307 H C-Reactive Protein 13.00 H Albumin 04/28/20 04/28/20 04/29/20 16:07 21:53 07:06 WBC RBC Hgb Hct MCHC RDW Lymph % (Auto) [place] % (Auto) Eos % (Auto) Lymph # (Auto) [place] # (Auto) Seg Neutrophils % Seg Neutrophils # D-Dimer > 67557 H Sodium Chloride BUN Creatinine Glucose POC Glucose 359 H 396 H Hemoglobin A1c Ferritin Lactate Dehydrogenase C-Reactive Protein Albumin 04/29/20 04/29/20 04/29/20 07:06 07:06 07:06 WBC RBC Hgb Hct MCHC RDW Lymph % (Auto) [place] % (Auto) Eos % (Auto) Lymph # (Auto) [place] # (Auto) Seg Neutrophils % Seg Neutrophils # D-Dimer Sodium 131 L Chloride 95.3 L BUN 41 H Creatinine 1.6 H Glucose 460 H POC Glucose Hemoglobin A1c 9.3 H Ferritin 1617.0 H Lactate Dehydrogenase 313 H C-Reactive Protein 9.60 H Albumin 3.3 L 04/29/20 04/29/20 04/29/20 07:06 08:06 11:17 WBC 13.6 H RBC 3.15 L Hgb 10.2 L Hct 29.5 L MCHC 35 H RDW 12.3 L Lymph % (Auto) 5.6 L [place] % (Auto) 10.3 H Eos % (Auto) Lymph # (Auto) 0.8 L [place] # (Auto) 1.4 H Seg Neutrophils % 83.6 H Seg Neutrophils # 11.4 H D-Dimer Sodium Chloride BUN Creatinine Glucose POC Glucose 410 H 399 H Hemoglobin A1c Ferritin Lactate Dehydrogenase C-Reactive Protein Albumin - Diagnostic Findings Chest x-ray: image reviewed CT scan - chest: report reviewed Assessment and Plan 59 y/o male with acute respiratory failure secondary to abnormal CXR, concern for COVID pneumonia 1. Agree with empiric steroids and Isolation 2. Suggest asking ID consult to see if he is remdesivir candidate 3. Agree with empiric abx therapy for now 4. Prone as tolerated during the day and sleep prone at night 5. Wean FiO2 for sats >88% 6. Renal has been consulted and has started fluids. This is not ideal given his current respiratory state but will have to closely monitor.
--- NOTE | 2020-04-29 13:39 | Consultation ---
History of Present Illness - Reason for Consult Consult date: 04/29/20 COVID PUI Requesting physician: CLARENCE SHAH - History of Present Illness The patient is a 60-year-old male with diabetes, hypertension admitted to the hospital with cough, fever, nausea, vomiting along with shortness of breath. Upon evaluation in the ER, he was noted to be hypoxic requiring supplemental oxygen. No fever. Labs revealed D-dimer greater than 10,000, ferritin 1617, LDH 313, CRP 9.6. Started on steroids, empiric abx. ID consulted due to concern for COVID-19. Test is pending at this time. Remains on 5-6 lit/min of NC oxygen. CTA negative for PE but showed b/l pneumonia. Review of Systems: reviewed in the chart, unable to obtain, minimize risk of transmission Past History Past Medical History: diabetes, hypertension Past Surgical History: No surgical history Social history: no significant social history Family history: no significant family history Medications and Allergies Allergies Allergy/AdvReac Type Severity Reaction Status Date / Time No Known Allergies Allergy Verified 04/28/20 11:42 Home Medications Medication Instructions Recorded Confirmed Last Taken Type Alogliptin Benzoate [Alogliptin] 25 mg PO DAILY 04/28/20 04/28/20 04/28/20 10:00 History Aspirin [Adult Aspirin] 81 mg PO DAILY 04/28/20 04/28/20 04/28/20 10:00 History Atorvastatin [Lipitor Tab] 40 mg PO DAILY 04/28/20 04/28/20 04/28/20 10:00 History Cholecalciferol Vit D3 [Vitamin D3 2 1000units PO DAILY 04/28/20 04/28/20 04/28/20 10:00 History 1,000 UNIT TAB] Gabapentin [Neurontin] 100 mg PO TID 04/28/20 04/28/20 04/28/20 10:00 History Metformin HCl [metFORMIN ER 500 mg PO BID 04/28/20 04/28/20 Unknown History Osmotic] lisinopriL [Zestril] 20 mg PO QDAY 04/28/20 04/28/20 04/28/20 10:00 History Active Meds: Active Medications Acetaminophen (Acetaminophen 325 Mg Tab) 650 mg PO Q6H PRN PRN Reason: Pain, Mild (1-3) Ascorbic Acid (Ascorbic Acid 500 Mg Tab) 500 mg PO QDAY [facility] Last Admin: 04/29/20 10:01 Dose: 500 mg Documented by: Azithromycin (Azithromycin 250 Mg Tab) 250 mg PO DAILY [facility]; Protocol Stop: 05/02/20 09:59 Last Admin: 04/29/20 10:01 Dose: 250 mg Documented by: Dexamethasone (Dexamethasone 4 Mg/Ml Vial) 6 mg IV DAILY [facility] Stop: 05/08/20 10:01 Last Admin: 04/29/20 10:01 Dose: 6 mg Documented by: Dextrose (Dextrose 50% In Water (25gm) 50 Ml Syringe) 50 ml IV Q30MIN PRN; Protocol PRN Reason: Hypoglycemia Enoxaparin Sodium (Enoxaparin 30 Mg/0.3 Ml Inj) 30 mg SUB-Q BID [facility]; Protocol Last Admin: 04/29/20 10:01 Dose: 30 mg Documented by: Guaifenesin (Guaifenesin Dm 200/20 Mg Oral Liqd 10 Ml) 10 ml PO Q8HR PRN PRN Reason: Cough Last Admin: 04/28/20 23:57 Dose: 10 ml Documented by: Hydralazine HCl (Hydralazine 20 Mg/1 Ml Inj) 10 mg IV Q6HR PRN PRN Reason: Blood Pressure Last Admin: 04/28/20 23:57 Dose: 10 mg Documented by: Ceftriaxone Sodium (Rocephin/Ns 1 Gm/50 Ml) 1 gm in 50 mls @ 100 mls/hr IV Q24H [facility]; Protocol Last Admin: 04/29/20 12:04 Dose: 100 mls/hr Documented by: Sodium Chloride (Nacl 0.9% 1000 Ml) 1,000 mls @ 50 mls/hr IV DIRECT [facility] Last Admin: 04/29/20 12:05 Dose: 50 mls/hr Documented by: REMDESIVIR 200 mg/ Sodium (Chloride) 250 mls @ 500 mls/hr IV ONCE ONE Stop: 04/29/20 14:03 REMDESIVIR 100 mg/ Sodium (Chloride) 250 mls @ 500 mls/hr IV Q24HR@2100 [facility] Stop: 05/03/20 21:29 Insulin Glargine (Insulin Glargine 100 Units/Ml) 15 units SUB-Q BID [facility] Insulin Human Regular (Insulin Regular, Human 100 Units/1 Ml) 0 units SUB-Q ACHS [facility]; Protocol Last Admin: 04/29/20 11:30 Dose: 10 units Documented by: Sodium Chloride (Sodium Chloride 0.9% 50 Ml Ivpb) 50 ml IV Q24HR@2100 [facility] Stop: 05/03/20 21:01 Zinc Sulfate (Zinc Sulfate 220 Mg Cap) 220 mg PO QDAY [facility] Last Admin: 04/29/20 10:02 Dose: 220 mg Documented by: Physical Examination - Physical Exam Narrative exam: Physical Exam (reviewed in chart to minimize risk of transmission) Constitutional: deferred Head, Ears, Nose: deferred Eyes: deferred Neck: deferred Oral: deferred Cardiovascular: deferred Respiratory: deferred GI: deferred Musculoskeletal: deferred Skin: deferred Hem/Lymphatic: deferred Psych: deferred Neurological: deferred - Constitutional Vitals: Vital Signs Temp Pulse Resp BP Pulse Ox 98.1 F 94 H 20 111/62 91 04/29/20 11:17 04/29/20 11:17 04/29/20 11:17 04/29/20 11:17 04/29/20 11:17 Temperature -Last 24 Hours Temperature 98.1 F Temperature 98.8 F Temperature 97.9 F Temperature 98.5 F Temperature 98.5 F Temperature 98.5 F Results - Labs CBC & Chem 7: 04/29/20 07:06 04/29/20 07:06 Labs: Abnormal lab results 04/28/20 04/28/20 04/28/20 Range/Units 13:48 16:07 21:53 WBC (4.5-11.0) K/mm3 RBC (3.65-5.03) M/mm3 Hgb (11.8-15.2) gm/dl Hct (35.5-45.6) % MCHC (32-34) % RDW (13.2-15.2) % Lymph % (Auto) (13.4-35.0) % [place] % (Auto) (0.0-7.3) % Lymph # (Auto) (1.2-5.4) K/mm3 [place] # (Auto) (0.0-0.8) K/mm3 Seg Neutrophils % (40.0-70.0) % Seg Neutrophils # (1.8-7.7) K/mm3 D-Dimer (0-234) ng/mlDDU Sodium 131 L (137-145) mmol/L Chloride 95.6 L (98-107) mmol/L BUN (9-20) mg/dL Creatinine (0.8-1.3) mg/dL Glucose (75-100) mg/dL POC Glucose 359 H 396 H (70-105) mg/dL Hemoglobin A1c (4-6) % Ferritin (30.0-300.0) ng/mL Lactate Dehydrogenase (91-180) units/L C-Reactive Protein (0.00-1.30) mg/dL Albumin (3.9-5) g/dL 04/29/20 04/29/20 04/29/20 Range/Units 07:06 07:06 07:06 WBC (4.5-11.0) K/mm3 RBC (3.65-5.03) M/mm3 Hgb (11.8-15.2) gm/dl Hct (35.5-45.6) % MCHC (32-34) % RDW (13.2-15.2) % Lymph % (Auto) (13.4-35.0) % [place] % (Auto) (0.0-7.3) % Lymph # (Auto) (1.2-5.4) K/mm3 [place] # (Auto) (0.0-0.8) K/mm3 Seg Neutrophils % (40.0-70.0) % Seg Neutrophils # (1.8-7.7) K/mm3 D-Dimer > 86688 H (0-234) ng/mlDDU Sodium 131 L (137-145) mmol/L Chloride 95.3 L (98-107) mmol/L BUN 41 H (9-20) mg/dL Creatinine 1.6 H (0.8-1.3) mg/dL Glucose 460 H (75-100) mg/dL POC Glucose (70-105) mg/dL Hemoglobin A1c (4-6) % Ferritin 1617.0 H (30.0-300.0) ng/mL Lactate Dehydrogenase 313 H (91-180) units/L C-Reactive Protein 9.60 H (0.00-1.30) mg/dL Albumin 3.3 L (3.9-5) g/dL 04/29/20 04/29/20 04/29/20 Range/Units 07:06 07:06 08:06 WBC 13.6 H (4.5-11.0) K/mm3 RBC 3.15 L (3.65-5.03) M/mm3 Hgb 10.2 L (11.8-15.2) gm/dl Hct 29.5 L (35.5-45.6) % MCHC 35 H (32-34) % RDW 12.3 L (13.2-15.2) % Lymph % (Auto) 5.6 L (13.4-35.0) % [place] % (Auto) 10.3 H (0.0-7.3) % Lymph # (Auto) 0.8 L (1.2-5.4) K/mm3 [place] # (Auto) 1.4 H (0.0-0.8) K/mm3 Seg Neutrophils % 83.6 H (40.0-70.0) % Seg Neutrophils # 11.4 H (1.8-7.7) K/mm3 D-Dimer (0-234) ng/mlDDU Sodium (137-145) mmol/L Chloride (98-107) mmol/L BUN (9-20) mg/dL Creatinine (0.8-1.3) mg/dL Glucose (75-100) mg/dL POC Glucose 410 H (70-105) mg/dL Hemoglobin A1c 9.3 H (4-6) % Ferritin (30.0-300.0) ng/mL Lactate Dehydrogenase (91-180) units/L C-Reactive Protein (0.00-1.30) mg/dL Albumin (3.9-5) g/dL 04/29/20 Range/Units 11:17 WBC (4.5-11.0) K/mm3 RBC (3.65-5.03) M/mm3 Hgb (11.8-15.2) gm/dl Hct (35.5-45.6) % MCHC (32-34) % RDW (13.2-15.2) % Lymph % (Auto) (13.4-35.0) % [place] % (Auto) (0.0-7.3) % Lymph # (Auto) (1.2-5.4) K/mm3 [place] # (Auto) (0.0-0.8) K/mm3 Seg Neutrophils % (40.0-70.0) % Seg Neutrophils # (1.8-7.7) K/mm3 D-Dimer (0-234) ng/mlDDU Sodium (137-145) mmol/L Chloride (98-107) mmol/L BUN (9-20) mg/dL Creatinine (0.8-1.3) mg/dL Glucose (75-100) mg/dL POC Glucose 399 H (70-105) mg/dL Hemoglobin A1c (4-6) % Ferritin (30.0-300.0) ng/mL Lactate Dehydrogenase (91-180) units/L C-Reactive Protein (0.00-1.30) mg/dL Albumin (3.9-5) g/dL - Imaging and Cardiology CT scan - chest: report reviewed, image reviewed (no PE. b/l infiltrates) Assessment and Plan Cultures: SARS CoV2 PCR: Pending 04/28/2020 blood culture: No growth A/P: 60-year-old male with diabetes, hypertension: #Bilateral pneumonia: Probably from Covid, test is pending. Elevated D-dimer, CTA negative #Acute hypoxic respiratory failure: On 6 L nasal cannula #LALA Recs: -IV/PO Dexamethasone 6 mg daily x 10 days -Continue empiric antibiotics for now -High concern for COVID-19, empiric remdesivir started -prophylactic anticoagulation based on d-dimer per hospital protocol -trend ferritin, LDH, d-dimer, CRP every 2-3 days for risk stratification and to assess disease progression Juana Mejia MD, FACP [facility] ([facility] O: [phone] F: [phone]
[2020-04-29 15:05] LABS: Creatinine,Urine 86.9 mg/dL (0.1-20.0); Protein/Creatinine Ratio,Urine 0.3
[2020-04-29] MEDS ORDERED: REMDESIVIR 200 MG in SODIUM CHLORIDE 0.9% 250ML 250 ML IV ONE (16:00)
[2020-04-29] MEDS ORDERED: REMDESIVIR 100 MG VIAL IV ONE (16:00)
[2020-04-29] MEDS: guaiFENesin DM 200/20 MG ORAL LIQD 10 ML PO PRN (16:25)
[2020-04-29] MEDS: hydrALAZINE 20 MG/1 ML INJ IV PRN (17:04)
[2020-04-29] MEDS ORDERED: INSULIN GLARGINE 100 UNITS/ML SUB-Q SCH (18:00)
[2020-04-29] MEDS: SODIUM CHLORIDE 0.9% 50 ML IVPB IV SCH (18:48)
[2020-04-29] MEDS: INSULIN GLARGINE 100 UNITS/ML SUB-Q SCH (18:50)
[2020-04-30 06:37] LABS: Basophils # (Auto) 0.1 K/mm3 (0.0-0.1); Basophils % (Auto) 0.4 % (0.0-1.8); Eosinophils # (Auto) 0.1 K/mm3 (0.0-0.4); Eosinophils % (Auto) 0.4 % (0.0-4.3); Hematocrit 28.5 % (35.5-45.6); Hemoglobin 9.7 gm/dl (11.8-15.2); Lymphocytes # (Auto) 1.4 K/mm3 (1.2-5.4); Lymphocytes % (Auto) 8.9 % (13.4-35.0); Mean Corpuscular HGB Conc 34 % (32-34); Mean Corpuscular Volume 93 fl (84-94); Monocytes # (Auto) 1.4 K/mm3 (0.0-0.8); Monocytes % (Auto) 9.2 % (0.0-7.3); Platelet Count 423 K/mm3 (140-440); Red Blood Count 3.06 M/mm3 (3.65-5.03); Red Cell Distribution Width 12.2 % (13.2-15.2)
[2020-04-30 06:58] LABS: Albumin 3.1 g/dL (3.9-5); Calcium 9.2 mg/dL (8.4-10.2)
[2020-04-30] MEDS: INSULIN GLARGINE 100 UNITS/ML SUB-Q SCH ×2 (08:00→16:14)
--- NOTE | 2020-04-30 08:20 | Progress Note ---
Assessment and Plan Acute Renal Failure secondary to prerenal etiology vs ATN R/O COVID-19 Bilateral Pneumonia Hypertension Diabetes Mellitus Plan: some improvement in Cr, good UOP, was 1.1 yesterday Obtain renal ultrasound-pending CXR-showed ground glass opacities concerning for infectious process On IV antibiotics Start gentle NS@ 50 ml/hr Obtain daily weights Monitor I/O's daily Avoid nephrotoxic agents Monitor renal function closely Subjective Date of service: 04/30/20 Principal diagnosis: LALA Interval history: patient is on isolation for COVID-19, chart reviewed. Objective - Vital Signs Vital signs: Vital Signs - 12hr 04/29/20 04/29/20 04/30/20 22:16 23:38 06:14 Temperature 97.8 F 98.7 F Pulse Rate 103 H 97 H Respiratory 18 20 Rate Blood Pressure 161/81 153/77 O2 Sat by Pulse 95 92 94 Oximetry - Lab 04/30/20 06:20 04/30/20 06:20 Most recent lab results Calcium 9.2 mg/dL (8.4-10.2) 04/30/20 06:20 Phosphorus 3.70 mg/dL (2.5-4.5) 04/30/20 06:20 Urine Creatinine 86.9 mg/dL (0.1-20.0) H 04/29/20 14:42 Urine Sodium 18 mmol/L 04/29/20 14:42 Urine Total Protein 26 mg/dL (5-11.8) H 04/29/20 14:42 Medications & Allergies - Medications Allergies/Adverse Reactions: Allergies No Known Allergies Allergy (Verified 04/28/20 11:42) Home Medications: Home Medications Medication Instructions Recorded Confirmed Last Taken Type Alogliptin Benzoate [Alogliptin] 25 mg PO DAILY 04/28/20 04/28/20 04/28/20 10:00 History Aspirin [Adult Aspirin] 81 mg PO DAILY 04/28/20 04/28/20 04/28/20 10:00 History Atorvastatin [Lipitor Tab] 40 mg PO DAILY 04/28/20 04/28/20 04/28/20 10:00 History Cholecalciferol Vit D3 [Vitamin D3 2 1000units PO DAILY 04/28/20 04/28/20 04/28/20 10:00 History 1,000 UNIT TAB] Gabapentin [Neurontin] 100 mg PO TID 04/28/20 04/28/20 04/28/20 10:00 History Metformin HCl [metFORMIN ER 500 mg PO BID 04/28/20 04/28/20 Unknown History Osmotic] lisinopriL [Zestril] 20 mg PO QDAY 04/28/20 04/28/20 04/28/20 10:00 History Active Medications: Generic Name Dose Route Start Last Admin Trade Name Freq PRN Reason Stop Dose Admin Acetaminophen 650 mg 04/28/20 23:05 Acetaminophen 325 Mg Tab PO Q6H PRN Pain, Mild (1-3) Ascorbic Acid 500 mg 04/29/20 10:00 04/29/20 10:01 Ascorbic Acid 500 Mg Tab PO 500 mg QDAY [facility] Administration Azithromycin 250 mg 04/29/20 10:00 04/29/20 10:01 Azithromycin 250 Mg Tab PO 05/02/20 09:59 250 mg DAILY [facility] Administration Protocol Dexamethasone 6 mg 04/29/20 10:00 04/29/20 10:01 Dexamethasone 4 Mg/Ml Vial IV 05/08/20 10:01 6 mg DAILY [facility] Administration Dextrose 50 ml 04/28/20 11:40 Dextrose 50% In Water (25gm) 50 Ml Syringe IV Q30MIN PRN Hypoglycemia Protocol Enoxaparin Sodium 30 mg 04/29/20 10:00 04/29/20 22:33 Enoxaparin 30 Mg/0.3 Ml Inj SUB-Q 30 mg BID [facility] Administration Protocol Guaifenesin 10 ml 04/28/20 23:04 04/29/20 16:25 Guaifenesin Dm 200/20 Mg Oral Liqd 10 Ml PO 10 ml Q8HR PRN Administration Cough Hydralazine HCl 10 mg 04/28/20 23:02 04/29/20 17:04 Hydralazine 20 Mg/1 Ml Inj IV 10 mg Q6HR PRN Administration Blood Pressure Ceftriaxone Sodium 1 gm in 50 mls @ 100 mls/hr 04/28/20 12:00 04/29/20 12:04 Rocephin/Ns 1 Gm/50 Ml IV 100 mls/hr Q24H MARIA L Administration Protocol Sodium Chloride 1,000 mls @ 50 mls/hr 04/29/20 10:30 04/29/20 16:23 Nacl 0.9% 1000 Ml IV 50 mls/hr DIRECT MARIA L Administration REMDESIVIR 100 mg/ Sodium 250 mls @ 500 mls/hr 04/30/20 21:00 Chloride IV 05/03/20 21:29 [id number]@2100 MARIA L Insulin Glargine 22 units 04/29/20 18:30 04/29/20 18:50 Insulin Glargine 100 Units/Ml SUB-Q 22 units BIDDIAB MARIA L Administration Insulin Human Regular 0 units 04/29/20 07:30 04/29/20 22:32 Insulin Regular, Human 100 Units/1 Ml SUB-Q 10 units ACHS MARIA L Administration Protocol Sodium Chloride 50 ml 04/29/20 16:30 04/29/20 18:48 Sodium Chloride 0.9% 50 Ml Ivpb IV 05/03/20 21:01 50 ml Q24HR@2100 MARIA L Administration Zinc Sulfate 220 mg 04/29/20 10:00 04/29/20 10:02 Zinc Sulfate 220 Mg Cap PO 220 mg QDAY MARIA L Administration
[2020-04-30] MEDS: INSULIN REGULAR, HUMAN 100 UNITS/1 ML SUB-Q SCH ×4 (08:34→22:02)
[2020-04-30] MEDS: dexAMETHasone 4 MG/ML VIAL IV SCH (10:15)
[2020-04-30] MEDS: AZITHROMYCIN 250 MG TAB PO SCH (10:15)
[2020-04-30] MEDS: ZINC SULFATE 220 MG CAP PO SCH (10:15)
[2020-04-30] MEDS: ASCORBIC ACID 500 MG TAB PO SCH (10:15)
[2020-04-30] MEDS: ENOXAPARIN 30 MG/0.3 ML INJ SUB-Q SCH ×2 (10:15→22:01)
[2020-04-30] MEDS: cefTRIAXone/NS 1 GM/50 ML 1 GM/50 ML BAG IV SCH (11:54)
--- NOTE | 2020-04-30 12:10 | Progress Note ---
Assessment and Plan 59 y/o male with acute respiratory failure secondary to abnormal CXR, concern for COVID pneumonia 04/30/20: No new recs for today. Please see below. 1. Agree with empiric steroids and Isolation 2. Suggest asking ID consult to see if he is remdesivir candidate 3. Agree with empiric abx therapy for now 4. Prone as tolerated during the day and sleep prone at night 5. Wean FiO2 for sats >88% 6. Renal has been consulted and has started fluids. This is not ideal given his current respiratory state but will have to closely monitor. Subjective Date of service: 04/30/20 Principal diagnosis: LALA Interval history: Back down to 5 liters with good sats. Objective Vital Signs - 12hr 04/30/20 04/30/20 04/30/20 06:14 08:48 11:15 Temperature 98.7 F Pulse Rate 97 H Respiratory 20 20 Rate Blood Pressure 153/77 O2 Sat by Pulse 94 94 Oximetry CBC and BMP: 04/30/20 06:20 04/30/20 06:20 ABG, PT/INR, D-dimer: PT/INR, D-dimer D-Dimer > 64990 ng/mlDDU (0-234) H 04/29/20 07:06 Abnormal lab findings: Abnormal Labs 04/28/20 04/28/20 04/28/20 09:50 09:50 10:49 WBC RBC 3.02 L Hgb 9.7 L Hct 28.3 L MCHC 35 H RDW 12.2 L Lymph % (Auto) 8.9 L [place] % (Auto) 11.9 H Eos % (Auto) 4.4 H Lymph # (Auto) 0.9 L [place] # (Auto) 1.2 H Seg Neutrophils % 74.0 H Seg Neutrophils # D-Dimer > 02360 H Sodium 130 L Chloride 93.9 L BUN 34 H Creatinine Glucose 227 H POC Glucose Hemoglobin A1c Ferritin Lactate Dehydrogenase C-Reactive Protein Albumin 3.0 L Urine Creatinine Urine Total Protein Coronavirus (PCR) 04/28/20 04/28/20 04/28/20 10:49 10:49 13:48 WBC RBC Hgb Hct MCHC RDW Lymph % (Auto) [place] % (Auto) Eos % (Auto) Lymph # (Auto) [place] # (Auto) Seg Neutrophils % Seg Neutrophils # D-Dimer Sodium 131 L Chloride 95.6 L BUN Creatinine Glucose POC Glucose Hemoglobin A1c Ferritin 1467.0 H Lactate Dehydrogenase 307 H C-Reactive Protein 13.00 H Albumin Urine Creatinine Urine Total Protein Coronavirus (PCR) 04/28/20 04/28/20 04/29/20 16:07 21:53 07:06 WBC RBC Hgb Hct MCHC RDW Lymph % (Auto) [place] % (Auto) Eos % (Auto) Lymph # (Auto) [place] # (Auto) Seg Neutrophils % Seg Neutrophils # D-Dimer > 76927 H Sodium Chloride BUN Creatinine Glucose POC Glucose 359 H 396 H Hemoglobin A1c Ferritin Lactate Dehydrogenase C-Reactive Protein Albumin Urine Creatinine Urine Total Protein Coronavirus (PCR) 04/29/20 04/29/20 04/29/20 07:06 07:06 07:06 WBC RBC Hgb Hct MCHC RDW Lymph % (Auto) [place] % (Auto) Eos % (Auto) Lymph # (Auto) [place] # (Auto) Seg Neutrophils % Seg Neutrophils # D-Dimer Sodium 131 L Chloride 95.3 L BUN 41 H Creatinine 1.6 H Glucose 460 H POC Glucose Hemoglobin A1c 9.3 H Ferritin 1617.0 H Lactate Dehydrogenase 313 H C-Reactive Protein 9.60 H Albumin 3.3 L Urine Creatinine Urine Total Protein Coronavirus (PCR) 04/29/20 04/29/20 04/29/20 07:06 08:06 09:25 WBC 13.6 H RBC 3.15 L Hgb 10.2 L Hct 29.5 L MCHC 35 H RDW 12.3 L Lymph % (Auto) 5.6 L [place] % (Auto) 10.3 H Eos % (Auto) Lymph # (Auto) 0.8 L [place] # (Auto) 1.4 H Seg Neutrophils % 83.6 H Seg Neutrophils # 11.4 H D-Dimer Sodium Chloride BUN Creatinine Glucose POC Glucose 410 H Hemoglobin A1c Ferritin Lactate Dehydrogenase C-Reactive Protein Albumin Urine Creatinine Urine Total Protein Coronavirus (PCR) Positive A 04/29/20 04/29/20 04/29/20 11:17 14:42 16:52 WBC RBC Hgb Hct MCHC RDW Lymph % (Auto) [place] % (Auto) Eos % (Auto) Lymph # (Auto) [place] # (Auto) Seg Neutrophils % Seg Neutrophils # D-Dimer Sodium Chloride BUN Creatinine Glucose POC Glucose 399 H 416 H Hemoglobin A1c Ferritin Lactate Dehydrogenase C-Reactive Protein Albumin Urine Creatinine 86.9 H Urine Total Protein 26 H Coronavirus (PCR) 04/30/20 04/30/20 06:20 06:20 WBC 15.5 H RBC 3.06 L Hgb 9.7 L Hct 28.5 L MCHC RDW 12.2 L Lymph % (Auto) 8.9 L [place] % (Auto) 9.2 H Eos % (Auto) Lymph # (Auto) [place] # (Auto) 1.4 H Seg Neutrophils % 81.1 H Seg Neutrophils # 12.5 H D-Dimer Sodium 135 L Chloride BUN 38 H Creatinine 1.5 H Glucose 229 H POC Glucose Hemoglobin A1c Ferritin Lactate Dehydrogenase C-Reactive Protein Albumin 3.1 L Urine Creatinine Urine Total Protein Coronavirus (PCR)
--- NOTE | 2020-04-30 14:27 | Progress Note ---
Assessment and Plan Cultures: SARS CoV2 PCR: positive 04/28/2020 blood culture: No growth A/P: 60-year-old male with diabetes, hypertension: #Bilateral pneumonia: secondary to COVID-19. Elevated D-dimer, CTA negative. Procal is low. #Acute hypoxic respiratory failure: On 5-6 L nasal cannula #LALA Recs: -IV/PO Dexamethasone 6 mg daily x 10 days -Continue Remdesivir, D2 -procalcitonin is low, abx discontinued -prophylactic anticoagulation based on d-dimer per hospital protocol -trend ferritin, LDH, d-dimer, CRP every 2-3 days for risk stratification and to assess disease progression Juana Mejia MD, FACP [facility] ([facility] O: [phone] F: [phone] Subjective Date of service: 04/30/20 Principal diagnosis: LALA Interval history: No fever. Remains on nasal cannula. Objective - Exam Narrative Exam: Physical Exam (reviewed in chart to minimize risk of transmission) Constitutional: deferred Head, Ears, Nose: deferred Eyes: deferred Neck: deferred Oral: deferred Cardiovascular: deferred Respiratory: deferred GI: deferred Musculoskeletal: deferred Skin: deferred Hem/Lymphatic: deferred Psych: deferred Neurological: deferred - Constitutional Vitals: Vital Signs Temp Pulse Resp BP Pulse Ox 98.0 F 100 H 20 115/66 95 04/30/20 10:57 04/30/20 10:57 04/30/20 11:15 04/30/20 10:57 04/30/20 10:57 Temperature -Last 24 Hours Temperature 98.0 F Temperature 98.7 F Temperature 97.8 F Temperature 97.3 F - Labs CBC & Chem 7: 04/30/20 06:20 04/30/20 06:20 Labs: Abnormal lab results 04/29/20 04/29/20 04/29/20 Range/Units 09:25 14:42 16:52 WBC (4.5-11.0) K/mm3 RBC (3.65-5.03) M/mm3 Hgb (11.8-15.2) gm/dl Hct (35.5-45.6) % RDW (13.2-15.2) % Lymph % (Auto) (13.4-35.0) % [place] % (Auto) (0.0-7.3) % [place] # (Auto) (0.0-0.8) K/mm3 Seg Neutrophils % (40.0-70.0) % Seg Neutrophils # (1.8-7.7) K/mm3 Sodium (137-145) mmol/L BUN (9-20) mg/dL Creatinine (0.8-1.3) mg/dL Glucose (75-100) mg/dL POC Glucose 416 H (70-105) mg/dL Albumin (3.9-5) g/dL Urine Creatinine 86.9 H (0.1-20.0) mg/dL Urine Total Protein 26 H (5-11.8) mg/dL Coronavirus (PCR) Positive A (Negative) 04/29/20 04/30/20 04/30/20 Range/Units 22:12 06:20 06:20 WBC 15.5 H (4.5-11.0) K/mm3 RBC 3.06 L (3.65-5.03) M/mm3 Hgb 9.7 L (11.8-15.2) gm/dl Hct 28.5 L (35.5-45.6) % RDW 12.2 L (13.2-15.2) % Lymph % (Auto) 8.9 L (13.4-35.0) % [place] % (Auto) 9.2 H (0.0-7.3) % [place] # (Auto) 1.4 H (0.0-0.8) K/mm3 Seg Neutrophils % 81.1 H (40.0-70.0) % Seg Neutrophils # 12.5 H (1.8-7.7) K/mm3 Sodium 135 L (137-145) mmol/L BUN 38 H (9-20) mg/dL Creatinine 1.5 H (0.8-1.3) mg/dL Glucose 229 H (75-100) mg/dL POC Glucose 374 H (70-105) mg/dL Albumin 3.1 L (3.9-5) g/dL Urine Creatinine (0.1-20.0) mg/dL Urine Total Protein (5-11.8) mg/dL Coronavirus (PCR) (Negative) 04/30/20 04/30/20 Range/Units 07:29 10:57 WBC (4.5-11.0) K/mm3 RBC (3.65-5.03) M/mm3 Hgb (11.8-15.2) gm/dl Hct (35.5-45.6) % RDW (13.2-15.2) % Lymph % (Auto) (13.4-35.0) % [place] % (Auto) (0.0-7.3) % [place] # (Auto) (0.0-0.8) K/mm3 Seg Neutrophils % (40.0-70.0) % Seg Neutrophils # (1.8-7.7) K/mm3 Sodium (137-145) mmol/L BUN (9-20) mg/dL Creatinine (0.8-1.3) mg/dL Glucose (75-100) mg/dL POC Glucose 201 H 218 H (70-105) mg/dL Albumin (3.9-5) g/dL Urine Creatinine (0.1-20.0) mg/dL Urine Total Protein (5-11.8) mg/dL Coronavirus (PCR) (Negative)
--- NOTE | 2020-04-30 15:09 | Progress Note ---
Assessment and Plan --Acute hypoxic respiratory failure Possible COVID-19 pneumonia. COVID-19 test ordered Continue oxygen supplementation --Bilateral pneumonia Chest x-ray showed bilateral infiltrates suggestive of possible COVID-19 pneumonia Likely COVID-19 pneumonia given symptoms, labs and chest x-ray. COVID-19 test ordered Continue ceftriaxone and azithromycin x5 days. Dexamethasone 6 mg x 10 days ID consulted Pulm consulted Trend inflammatory markers Incentive spirometer Oxygen supplementation-continuous pulse ox Telemetry monitoring --Elevated D-dimer D-dimer more than 10,000. Likely secondary to COVID-19 Started on therapeutic Lovenox but CTA and ultrasound Doppler negative for any clots so we switched to prophylactic dose of Lovenox --Diabetes mellitus Patient takes Metformin at home. Hold for now Start lispro sliding scale. Added Lantus Continue to monitor blood glucose closely as patient is on dexamethasone --Hypertension Patient takes lisinopril at home. Hold lisinopril given bump in creatinine --Hyponatremia Patient states that he has been drinking a lot of water Labs reviewed. Urine osmolality normal. Likely SIADH 2/2 lung infection. TSH wnl. Trend sodium levels --LALA Bump in creatinine noted. Secondary to vasomotor nephropathy Hold lisinopril Nephrology consulted --DVT prophylaxis-Lovenox --Full code Brief history: 60-year-old male with a medical history of hypertension, diabetes presented to emergency room with chief complaint of generalized weakness and shortness of breath. Patient states that symptoms started about 2 weeks prior to presentation. He initially started having productive cough, fever, nausea with vomiting, decreased appetite, loss of taste and smell and symptoms started later progressed to problems breathing about a week prior to presentation. Patient h ad a Covid test performed on Wednesday [04/23] and results still pending as per patient. He mentions that some family members have similar symptoms and they have not been diagnosed with Covid yet as results are still pending. He denies any chest pain or palpitations. Daily course: 04/29/2020. Patient seen and examined at bedside this a.m. He has no complaints. CTA chest and ultrasound Doppler negative for PE. Lovenox switched to prophylactic dose. Pulmonology consulted for respiratory failure. Labs reviewed-creatinine bumped up to 1.6. Hold lisinopril for now. Consulted nephrology. Insulin dose increased due to hyperglycemia. Still awaiting COVID- 19 test. Continue ceftriaxone, azithromycin and dexamethasone. Awaiting ID evaluation 04/30: Patient on dexamethasone and remdesivir, remains on 5 to 6 L nasal cannula O2. Continue to follow inflammatory markers follow BMP. Subjective Date of service: 04/30/20 Principal diagnosis: LALA Objective - Constitutional Vitals: Vital Signs - 12hr 04/30/20 04/30/20 04/30/20 06:14 08:48 10:57 Temperature 98.7 F 98.0 F Pulse Rate 97 H 100 H Respiratory 20 22 Rate Blood Pressure 153/77 115/66 O2 Sat by Pulse 94 94 95 Oximetry 04/30/20 11:15 Temperature Pulse Rate Respiratory 20 Rate Blood Pressure O2 Sat by Pulse Oximetry - Labs CBC & Chem 7: 05/01/20 05:13 05/01/20 05:13 Labs: Abnormal lab results 04/29/20 04/29/20 04/29/20 Range/Units 14:42 16:52 22:12 WBC (4.5-11.0) K/mm3 RBC (3.65-5.03) M/mm3 Hgb (11.8-15.2) gm/dl Hct (35.5-45.6) % RDW (13.2-15.2) % Lymph % (Auto) (13.4-35.0) % [place] % (Auto) (0.0-7.3) % [place] # (Auto) (0.0-0.8) K/mm3 Seg Neutrophils % (40.0-70.0) % Seg Neutrophils # (1.8-7.7) K/mm3 Sodium (137-145) mmol/L BUN (9-20) mg/dL Creatinine (0.8-1.3) mg/dL Glucose (75-100) mg/dL POC Glucose 416 H 374 H (70-105) mg/dL Albumin (3.9-5) g/dL Urine Creatinine 86.9 H (0.1-20.0) mg/dL Urine Total Protein 26 H (5-11.8) mg/dL 04/30/20 04/30/20 04/30/20 Range/Units 06:20 06:20 07:29 WBC 15.5 H (4.5-11.0) K/mm3 RBC 3.06 L (3.65-5.03) M/mm3 Hgb 9.7 L (11.8-15.2) gm/dl Hct 28.5 L (35.5-45.6) % RDW 12.2 L (13.2-15.2) % Lymph % (Auto) 8.9 L (13.4-35.0) % [place] % (Auto) 9.2 H (0.0-7.3) % [place] # (Auto) 1.4 H (0.0-0.8) K/mm3 Seg Neutrophils % 81.1 H (40.0-70.0) % Seg Neutrophils # 12.5 H (1.8-7.7) K/mm3 Sodium 135 L (137-145) mmol/L BUN 38 H (9-20) mg/dL Creatinine 1.5 H (0.8-1.3) mg/dL Glucose 229 H (75-100) mg/dL POC Glucose 201 H (70-105) mg/dL Albumin 3.1 L (3.9-5) g/dL Urine Creatinine (0.1-20.0) mg/dL Urine Total Protein (5-11.8) mg/dL 04/30/20 Range/Units 10:57 WBC (4.5-11.0) K/mm3 RBC (3.65-5.03) M/mm3 Hgb (11.8-15.2) gm/dl Hct (35.5-45.6) % RDW (13.2-15.2) % Lymph % (Auto) (13.4-35.0) % [place] % (Auto) (0.0-7.3) % [place] # (Auto) (0.0-0.8) K/mm3 Seg Neutrophils % (40.0-70.0) % Seg Neutrophils # (1.8-7.7) K/mm3 Sodium (137-145) mmol/L BUN (9-20) mg/dL Creatinine (0.8-1.3) mg/dL Glucose (75-100) mg/dL POC Glucose 218 H (70-105) mg/dL Albumin (3.9-5) g/dL Urine Creatinine (0.1-20.0) mg/dL Urine Total Protein (5-11.8) mg/dL HEART Score - HEART Score Troponin: Troponin T < 0.010 ng/mL (0.00-0.029) 04/28/20 09:50
[2020-04-30] MEDS: REMDESIVIR 100 MG in SODIUM CHLORIDE 0.9% 250ML 250 ML IV SCH (21:58)
[2020-04-30] MEDS: SODIUM CHLORIDE 0.9% 50 ML IVPB IV SCH (21:58)
[2020-05-01 06:29] LABS: Basophils % (Auto) 0.3 % (0.0-1.8); Eosinophils % (Auto) 0.2 % (0.0-4.3); Hematocrit 27.8 % (35.5-45.6); Hemoglobin 9.4 gm/dl (11.8-15.2); Lymphocytes % (Auto) 8.2 % (13.4-35.0); Mean Corpuscular HGB Conc 34 % (32-34); Mean Corpuscular Volume 93 fl (84-94); Monocytes # (Auto) 1.2 K/mm3 (0.0-0.8); Monocytes % (Auto) 9.8 % (0.0-7.3); Platelet Count 460 K/mm3 (140-440); Red Cell Distribution Width 12.5 % (13.2-15.2)
[2020-05-01 06:48] LABS: Alanine Aminotransferase 24 units/L (7-56); Albumin 2.9 g/dL (3.9-5); BUN/Creatinine Ratio 21; Blood Urea Nitrogen 29 mg/dL (9-20); Calcium 9.1 mg/dL (8.4-10.2); Hemolysis Index 19
[2020-05-01] MEDS: INSULIN REGULAR, HUMAN 100 UNITS/1 ML SUB-Q SCH ×4 (08:31→22:27)
[2020-05-01] MEDS: INSULIN GLARGINE 100 UNITS/ML SUB-Q SCH ×2 (08:33→17:42)
--- NOTE | 2020-05-01 10:01 | Progress Note ---
Assessment and Plan 59 y/o male with acute respiratory failure secondary to abnormal CXR, concern for COVID pneumonia 05/01/20: Steroids for 10 days. Continue remdesivir. Follow up renal recs. Please be mindful of fluid status. Prone as tolerate during the day and sleep prone at night. Will follow 04/30/20: No new recs for today. Please see below. 1. Agree with empiric steroids and Isolation 2. Suggest asking ID consult to see if he is remdesivir candidate 3. Agree with empiric abx therapy for now 4. Prone as tolerated during the day and sleep prone at night 5. Wean FiO2 for sats >88% 6. Renal has been consulted and has started fluids. This is not ideal given his current respiratory state but will have to closely monitor. Subjective Date of service: 05/01/20 Principal diagnosis: LALA Interval history: Remains on 5 liters [place]. Sats in the mid to low 90's. Objective Vital Signs - 12hr 04/30/20 05/01/20 05/01/20 22:00 00:20 06:30 Temperature 98.4 F 97.7 F Pulse Rate 100 H 99 H Respiratory 20 18 Rate Blood Pressure 179/93 131/80 O2 Sat by Pulse 93 94 96 Oximetry CBC and BMP: 05/01/20 05:13 05/01/20 05:13 ABG, PT/INR, D-dimer: PT/INR, D-dimer D-Dimer > 99149 ng/mlDDU (0-234) H 04/29/20 07:06 Abnormal lab findings: Abnormal Labs 04/28/20 04/28/20 04/28/20 09:50 09:50 10:49 WBC RBC 3.02 L Hgb 9.7 L Hct 28.3 L MCHC 35 H RDW 12.2 L Plt Count Lymph % (Auto) 8.9 L [place] % (Auto) 11.9 H Eos % (Auto) 4.4 H Lymph # (Auto) 0.9 L [place] # (Auto) 1.2 H Seg Neutrophils % 74.0 H Seg Neutrophils # D-Dimer > 60813 H Sodium 130 L Chloride 93.9 L BUN 34 H Creatinine Glucose 227 H POC Glucose Hemoglobin A1c Ferritin Lactate Dehydrogenase C-Reactive Protein Albumin 3.0 L Urine Creatinine Urine Total Protein Coronavirus (PCR) 04/28/20 04/28/20 04/28/20 10:49 10:49 13:48 WBC RBC Hgb Hct MCHC RDW Plt Count Lymph % (Auto) [place] % (Auto) Eos % (Auto) Lymph # (Auto) [place] # (Auto) Seg Neutrophils % Seg Neutrophils # D-Dimer Sodium 131 L Chloride 95.6 L BUN Creatinine Glucose POC Glucose Hemoglobin A1c Ferritin 1467.0 H Lactate Dehydrogenase 307 H C-Reactive Protein 13.00 H Albumin Urine Creatinine Urine Total Protein Coronavirus (PCR) 04/28/20 04/28/20 04/29/20 16:07 21:53 07:06 WBC RBC Hgb Hct MCHC RDW Plt Count Lymph % (Auto) [place] % (Auto) Eos % (Auto) Lymph # (Auto) [place] # (Auto) Seg Neutrophils % Seg Neutrophils # D-Dimer > 20104 H Sodium Chloride BUN Creatinine Glucose POC Glucose 359 H 396 H Hemoglobin A1c Ferritin Lactate Dehydrogenase C-Reactive Protein Albumin Urine Creatinine Urine Total Protein Coronavirus (PCR) 04/29/20 04/29/20 04/29/20 07:06 07:06 07:06 WBC RBC Hgb Hct MCHC RDW Plt Count Lymph % (Auto) [place] % (Auto) Eos % (Auto) Lymph # (Auto) [place] # (Auto) Seg Neutrophils % Seg Neutrophils # D-Dimer Sodium 131 L Chloride 95.3 L BUN 41 H Creatinine 1.6 H Glucose 460 H POC Glucose Hemoglobin A1c 9.3 H Ferritin 1617.0 H Lactate Dehydrogenase 313 H C-Reactive Protein 9.60 H Albumin 3.3 L Urine Creatinine Urine Total Protein Coronavirus (PCR) 04/29/20 04/29/20 04/29/20 07:06 08:06 09:25 WBC 13.6 H RBC 3.15 L Hgb 10.2 L Hct 29.5 L MCHC 35 H RDW 12.3 L Plt Count Lymph % (Auto) 5.6 L [place] % (Auto) 10.3 H Eos % (Auto) Lymph # (Auto) 0.8 L [place] # (Auto) 1.4 H Seg Neutrophils % 83.6 H Seg Neutrophils # 11.4 H D-Dimer Sodium Chloride BUN Creatinine Glucose POC Glucose 410 H Hemoglobin A1c Ferritin Lactate Dehydrogenase C-Reactive Protein Albumin Urine Creatinine Urine Total Protein Coronavirus (PCR) Positive A 04/29/20 04/29/20 04/29/20 11:17 14:42 16:52 WBC RBC Hgb Hct MCHC RDW Plt Count Lymph % (Auto) [place] % (Auto) Eos % (Auto) Lymph # (Auto) [place] # (Auto) Seg Neutrophils % Seg Neutrophils # D-Dimer Sodium Chloride BUN Creatinine Glucose POC Glucose 399 H 416 H Hemoglobin A1c Ferritin Lactate Dehydrogenase C-Reactive Protein Albumin Urine Creatinine 86.9 H Urine Total Protein 26 H Coronavirus (PCR) 04/29/20 04/30/20 04/30/20 22:12 06:20 06:20 WBC 15.5 H RBC 3.06 L Hgb 9.7 L Hct 28.5 L MCHC RDW 12.2 L Plt Count Lymph % (Auto) 8.9 L [place] % (Auto) 9.2 H Eos % (Auto) Lymph # (Auto) [place] # (Auto) 1.4 H Seg Neutrophils % 81.1 H Seg Neutrophils # 12.5 H D-Dimer Sodium 135 L Chloride BUN 38 H Creatinine 1.5 H Glucose 229 H POC Glucose 374 H Hemoglobin A1c Ferritin Lactate Dehydrogenase C-Reactive Protein Albumin 3.1 L Urine Creatinine Urine Total Protein Coronavirus (PCR) 04/30/20 04/30/20 04/30/20 07:29 10:57 16:03 WBC RBC Hgb Hct MCHC RDW Plt Count Lymph % (Auto) [place] % (Auto) Eos % (Auto) Lymph # (Auto) [place] # (Auto) Seg Neutrophils % Seg Neutrophils # D-Dimer Sodium Chloride BUN Creatinine Glucose POC Glucose 201 H 218 H 325 H Hemoglobin A1c Ferritin Lactate Dehydrogenase C-Reactive Protein Albumin Urine Creatinine Urine Total Protein Coronavirus (PCR) 04/30/20 05/01/20 05/01/20 21:28 05:13 05:13 WBC 12.0 H RBC 3.00 L Hgb 9.4 L Hct 27.8 L MCHC RDW 12.5 L Plt Count 460 H Lymph % (Auto) 8.2 L [place] % (Auto) 9.8 H Eos % (Auto) Lymph # (Auto) 1.0 L [place] # (Auto) 1.2 H Seg Neutrophils % 81.5 H Seg Neutrophils # 9.8 H D-Dimer Sodium 134 L Chloride BUN 29 H Creatinine 1.4 H Glucose 297 H POC Glucose 426 H Hemoglobin A1c Ferritin Lactate Dehydrogenase C-Reactive Protein Albumin 2.9 L Urine Creatinine Urine Total Protein Coronavirus (PCR)
[2020-05-01] MEDS: dexAMETHasone 4 MG/ML VIAL IV SCH (10:30)
[2020-05-01] MEDS: ENOXAPARIN 30 MG/0.3 ML INJ SUB-Q SCH ×2 (10:30→21:20)
[2020-05-01] MEDS: ZINC SULFATE 220 MG CAP PO SCH (10:30)
[2020-05-01] MEDS: ASCORBIC ACID 500 MG TAB PO SCH (10:30)
--- NOTE | 2020-05-01 11:57 | Progress Note ---
Assessment and Plan Assessment: Acute Renal Failure secondary to prerenal etiology vs ATN R/O COVID-19 Bilateral Pneumonia Hypertension Diabetes Mellitus Plan: Renal labs reviewed. Serum creatinine 1.4 today, was 1.5 yesterday Urine lytes reviewed, no significant proteinuria, no urine eosinophils Renal ultrasound-pending CXR-showed ground glass opacities concerning for infectious process On IV antibiotics, Remdesivir and steroids D/C IVF Obtain daily weights Monitor I/O's daily Avoid nephrotoxic agents Continue to monitor renal function closely Subjective Date of service: 05/01/20 Principal diagnosis: LALA Interval history: Patient not seen and examined due to being COVID positive to reduce the risk of exposure and or transmission of this disease during this pandemic. Objective - Vital Signs Vital signs: Vital Signs - 12hr 05/01/20 05/01/20 05/01/20 00:20 06:30 08:30 Temperature 98.4 F 97.7 F Pulse Rate 100 H 99 H Respiratory 20 18 18 Rate Blood Pressure 179/93 131/80 O2 Sat by Pulse 94 96 Oximetry 05/01/20 10:35 Temperature Pulse Rate Respiratory Rate Blood Pressure O2 Sat by Pulse 95 Oximetry - Lab 05/01/20 05:13 05/01/20 05:13 Most recent lab results Calcium 9.1 mg/dL (8.4-10.2) 05/01/20 05:13 Phosphorus 3.70 mg/dL (2.5-4.5) 04/30/20 06:20 Urine Creatinine 86.9 mg/dL (0.1-20.0) H 04/29/20 14:42 Urine Sodium 18 mmol/L 04/29/20 14:42 Urine Total Protein 26 mg/dL (5-11.8) H 04/29/20 14:42 Medications & Allergies - Medications Allergies/Adverse Reactions: Allergies No Known Allergies Allergy (Verified 04/28/20 11:42) Home Medications: Home Medications Medication Instructions Recorded Confirmed Last Taken Type Alogliptin Benzoate [Alogliptin] 25 mg PO DAILY 04/28/20 04/28/20 04/28/20 10:00 History Aspirin [Adult Aspirin] 81 mg PO DAILY 04/28/20 04/28/20 04/28/20 10:00 History Atorvastatin [Lipitor Tab] 40 mg PO DAILY 04/28/20 04/28/20 04/28/20 10:00 H istory Cholecalciferol Vit D3 [Vitamin D3 2 1000units PO DAILY 04/28/20 04/28/20 04/28/20 10:00 History 1,000 UNIT TAB] Gabapentin [Neurontin] 100 mg PO TID 04/28/20 04/28/20 04/28/20 10:00 History Metformin HCl [metFORMIN ER 500 mg PO BID 04/28/20 04/28/20 Unknown History Osmotic] lisinopriL [Zestril] 20 mg PO QDAY 04/28/20 04/28/20 04/28/20 10:00 History Active Medications: Generic Name Dose Route Start Last Admin Trade Name Freq PRN Reason Stop Dose Admin Acetaminophen 650 mg 04/28/20 23:05 Acetaminophen 325 Mg Tab PO Q6H PRN Pain, Mild (1-3) Ascorbic Acid 500 mg 04/29/20 10:00 05/01/20 10:30 Ascorbic Acid 500 Mg Tab PO 500 mg QDAY MARIA L Administration Dexamethasone 6 mg 04/29/20 10:00 05/01/20 10:30 Dexamethasone 4 Mg/Ml Vial IV 05/01/20 11:59 6 mg DAILY MARIA L Administration Dexamethasone 6 mg 05/02/20 10:00 Dexamethasone 4 Mg Tab PO 05/08/20 12:00 DAILY MARIA L Dextrose 50 ml 04/28/20 11:40 Dextrose 50% In Water (25gm) 50 Ml Syringe IV Q30MIN PRN Hypoglycemia Protocol Enoxaparin Sodium 30 mg 04/29/20 10:00 05/01/20 10:30 Enoxaparin 30 Mg/0.3 Ml Inj SUB-Q 30 mg BID MARIA L Administration Protocol Guaifenesin 10 ml 04/28/20 23:04 04/29/20 16:25 Guaifenesin Dm 200/20 Mg Oral Liqd 10 Ml PO 10 ml Q8HR PRN Administration Cough Hydralazine HCl 10 mg 04/28/20 23:02 04/29/20 17:04 Hydralazine 20 Mg/1 Ml Inj IV 10 mg Q6HR PRN Administration Blood Pressure Sodium Chloride 1,000 mls @ 50 mls/hr 04/29/20 10:30 04/29/20 16:23 Nacl 0.9% 1000 Ml IV 50 mls/hr DIRECT MARIA L Administration REMDESIVIR 100 mg/ Sodium 250 mls @ 500 mls/hr 04/30/20 21:00 04/30/20 21:58 Chloride IV 05/03/20 21:29 500 mls/hr Q24HR@2100 MARIA L Administration Insulin Glargine 22 units 04/29/20 18:30 05/01/20 08:33 Insulin Glargine 100 Units/Ml SUB-Q 22 units BIDDIAB MARIA L Administration Insulin Human Regular 0 units 04/29/20 07:30 05/01/20 08:31 Insulin Regular, Human 100 Units/1 Ml SUB-Q 4 units ACHS MARIA L Administration Protocol Sodium Chloride 50 ml 04/29/20 16:30 04/30/20 21:58 Sodium Chloride 0.9% 50 Ml Ivpb IV 05/03/20 21:01 50 ml Q24HR@2100 MARIA L Administration Zinc Sulfate 220 mg 04/29/20 10:00 05/01/20 10:30 Zinc Sulfate 220 Mg Cap PO 220 mg QDAY MARIA L Administration
--- NOTE | 2020-05-01 14:09 | Progress Note ---
Assessment and Plan Cultures: SARS CoV2 PCR: positive 04/28/2020 blood culture: No growth A/P: 60-year-old male with diabetes, hypertension: #Bilateral pneumonia: secondary to COVID-19. Elevated D-dimer, CTA negative. Procal is low. #Acute hypoxic respiratory failure: On nasal cannula #LALA Recs: -IV/PO Dexamethasone 6 mg daily x 10 days -Continue Remdesivir, D3 -prophylactic anticoagulation based on d-dimer per hospital protocol -trend ferritin, LDH, d-dimer, CRP every 2-3 days for risk stratification and to assess disease progression Juana Mejia MD, FACP [facility], [place], [facility] O: [phone] F: [phone] Subjective Date of service: 05/01/20 Principal diagnosis: LALA Interval history: No fever. Remains on nasal cannula. Objective - Exam Narrative Exam: Physical Exam (reviewed in chart to minimize risk of transmission) Constitutional: deferred Head, Ears, Nose: deferred Eyes: deferred Neck: deferred Oral: deferred Cardiovascular: deferred Respiratory: deferred GI: deferred Musculoskeletal: deferred Skin: deferred Hem/Lymphatic: deferred Psych: deferred Neurological: deferred - Constitutional Vitals: Vital Signs Temp Pulse Resp BP Pulse Ox 122.0 F H 97 H 20 122/76 96 05/01/20 12:06 05/01/20 12:06 05/01/20 12:06 05/01/20 12:06 05/01/20 12:06 Temperature -Last 24 Hours Temperature 122.0 F Temperature 97.7 F Temperature 98.4 F Temperature 98.2 F - Labs CBC & Chem 7: 05/01/20 05:13 05/01/20 05:13 Labs: Abnormal lab results 04/30/20 04/30/20 05/01/20 Range/Units 16:03 21:28 05:13 WBC 12.0 H (4.5-11.0) K/mm3 RBC 3.00 L (3.65-5.03) M/mm3 Hgb 9.4 L (11.8-15.2) gm/dl Hct 27.8 L (35.5-45.6) % RDW 12.5 L (13.2-15.2) % Plt Count 460 H (140-440) K/mm3 Lymph % (Auto) 8.2 L (13.4-35.0) % [place] % (Auto) 9.8 H (0.0-7.3) % Lymph # (Auto) 1.0 L (1.2-5.4) K/mm3 [place] # (Auto) 1.2 H (0.0-0.8) K/mm3 Seg Neutrophils % 81.5 H (40.0-70.0) % Seg Neutrophils # 9.8 H (1.8-7.7) K/mm3 Sodium (137-145) mmol/L BUN (9-20) mg/dL Creatinine (0.8-1.3) mg/dL Glucose (75-100) mg/dL POC Glucose 325 H 426 H (70-105) mg/dL Albumin (3.9-5) g/dL 05/01/20 05/01/20 05/01/20 Range/Units 05:13 07:43 12:05 WBC (4.5-11.0) K/mm3 RBC (3.65-5.03) M/mm3 Hgb (11.8-15.2) gm/dl Hct (35.5-45.6) % RDW (13.2-15.2) % Plt Count (140-440) K/mm3 Lymph % (Auto) (13.4-35.0) % [place] % (Auto) (0.0-7.3) % Lymph # (Auto) (1.2-5.4) K/mm3 [place] # (Auto) (0.0-0.8) K/mm3 Seg Neutrophils % (40.0-70.0) % Seg Neutrophils # (1.8-7.7) K/mm3 Sodium 134 L (137-145) mmol/L BUN 29 H (9-20) mg/dL Creatinine 1.4 H (0.8-1.3) mg/dL Glucose 297 H (75-100) mg/dL POC Glucose 242 H 237 H (70-105) mg/dL Albumin 2.9 L (3.9-5) g/dL
--- NOTE | 2020-05-01 16:40 | Progress Note ---
Assessment and Plan --Acute hypoxic respiratory failure Possible COVID-19 pneumonia. COVID-19 test ordered Continue oxygen supplementation --Bilateral pneumonia Chest x-ray showed bilateral infiltrates suggestive of possible COVID-19 pneumonia Likely COVID-19 pneumonia given symptoms, labs and chest x-ray. COVID-19 test ordered Continue ceftriaxone and azithromycin x5 days. Dexamethasone 6 mg x 10 days ID consulted Pulm consulted Trend inflammatory markers Incentive spirometer Oxygen supplementation-continuous pulse ox Telemetry monitoring --Elevated D-dimer D-dimer more than 10,000. Likely secondary to COVID-19 Started on therapeutic Lovenox but CTA and ultrasound Doppler negative for any clots so we switched to prophylactic dose of Lovenox --Diabetes mellitus Patient takes Metformin at home. Hold for now Start lispro sliding scale. Added Lantus Continue to monitor blood glucose closely as patient is on dexamethasone --Hypertension Patient takes lisinopril at home. Hold lisinopril given bump in creatinine --Hyponatremia Patient states that he has been drinking a lot of water Labs reviewed. Urine osmolality normal. Likely SIADH 2/2 lung infection. TSH wnl. Trend sodium levels --LALA Bump in creatinine noted. Secondary to vasomotor nephropathy Hold lisinopril Nephrology consulted --DVT prophylaxis-Lovenox --Full code Brief history: 60-year-old male with a medical history of hypertension, diabetes presented to emergency room with chief complaint of generalized weakness and shortness of breath. Patient states that symptoms started about 2 weeks prior to presentation. He initially started having productive cough, fever, nausea with vomiting, decreased appetite, loss of taste and smell and symptoms started later progressed to problems breathing about a week prior to presentation. Patient h ad a Covid test performed on Wednesday [04/23] and results still pending as per patient. He mentions that some family members have similar symptoms and they have not been diagnosed with Covid yet as results are still pending. He denies any chest pain or palpitations. Daily course: 04/29/2020. Patient seen and examined at bedside this a.m. He has no complaints. CTA chest and ultrasound Doppler negative for PE. Lovenox switched to prophylactic dose. Pulmonology consulted for respiratory failure. Labs reviewed-creatinine bumped up to 1.6. Hold lisinopril for now. Consulted nephrology. Insulin dose increased due to hyperglycemia. Still awaiting COVID- 19 test. Continue ceftriaxone, azithromycin and dexamethasone. Awaiting ID evaluation 22: Patient on dexamethasone and remdesivir, remains on 5 to 6 L nasal cannula O2. Continue to follow inflammatory markers follow BMP. 05/01: cont to follow BMP, inflammatory markers. on 5L O2 today Subjective Date of service: 05/01/20 Principal diagnosis: LALA Objective - Constitutional Vitals: Vital Signs - 12hr 05/01/20 05/01/20 05/01/20 06:30 08:30 10:35 Temperature 97.7 F Pulse Rate 99 H Respiratory 18 18 Rate Blood Pressure 131/80 O2 Sat by Pulse 96 95 Oximetry 05/01/20 12:06 Temperature 122.0 F H Pulse Rate 97 H Respiratory 20 Rate Blood Pressure 122/76 O2 Sat by Pulse 96 Oximetry - Labs CBC & Chem 7: 05/01/20 05:13 05/01/20 05:13 Labs: Abnormal lab results 04/30/20 05/01/20 05/01/20 Range/Units 21:28 05:13 05:13 WBC 12.0 H (4.5-11.0) K/mm3 RBC 3.00 L (3.65-5.03) M/mm3 Hgb 9.4 L (11.8-15.2) gm/dl Hct 27.8 L (35.5-45.6) % RDW 12.5 L (13.2-15.2) % Plt Count 460 H (140-440) K/mm3 Lymph % (Auto) 8.2 L (13.4-35.0) % [place] % (Auto) 9.8 H (0.0-7.3) % Lymph # (Auto) 1.0 L (1.2-5.4) K/mm3 [place] # (Auto) 1.2 H (0.0-0.8) K/mm3 Seg Neutrophils % 81.5 H (40.0-70.0) % Seg Neutrophils # 9.8 H (1.8-7.7) K/mm3 Sodium 134 L (137-145) mmol/L BUN 29 H (9-20) mg/dL Creatinine 1.4 H (0.8-1.3) mg/dL Glucose 297 H (75-100) mg/dL POC Glucose 426 H (70-105) mg/dL Albumin 2.9 L (3.9-5) g/dL 05/01/20 05/01/20 Range/Units 07:43 12:05 WBC (4.5-11.0) K/mm3 RBC (3.65-5.03) M/mm3 Hgb (11.8-15.2) gm/dl Hct (35.5-45.6) % RDW (13.2-15.2) % Plt Count (140-440) K/mm3 Lymph % (Auto) (13.4-35.0) % [place] % (Auto) (0.0-7.3) % Lymph # (Auto) (1.2-5.4) K/mm3 [place] # (Auto) (0.0-0.8) K/mm3 Seg Neutrophils % (40.0-70.0) % Seg Neutrophils # (1.8-7.7) K/mm3 Sodium (137-145) mmol/L BUN (9-20) mg/dL Creatinine (0.8-1.3) mg/dL Glucose (75-100) mg/dL POC Glucose 242 H 237 H (70-105) mg/dL Albumin (3.9-5) g/dL HEART Score - HEART Score Troponin: Troponin T < 0.010 ng/mL (0.00-0.029) 04/28/20 09:50
[2020-05-01] MEDS: SODIUM CHLORIDE 0.9% 50 ML IVPB IV SCH (21:16)
[2020-05-01] MEDS: REMDESIVIR 100 MG in SODIUM CHLORIDE 0.9% 250ML 250 ML IV SCH (21:31)
[2020-05-02 06:52] LABS: Alanine Aminotransferase 65 units/L (7-56); BUN/Creatinine Ratio 21; Blood Urea Nitrogen 27 mg/dL (9-20); Calcium 9.4 mg/dL (8.4-10.2); Hemolysis Index 0
--- NOTE | 2020-05-02 08:55 | Progress Note ---
Assessment and Plan 59 y/o male with acute respiratory failure secondary to abnormal CXR, concern for COVID pneumonia 05/02/20: sTeroids for 10 days. Continue Remdesiver for total of 5 days. Prone as tolerated. 05/01/20: Steroids for 10 days. Continue remdesivir. Follow up renal recs. Please be mindful of fluid status. Prone as tolerate during the day and sleep prone at night. Will follow 04/30/20: No new recs for today. Please see below. 1. Agree with empiric steroids and Isolation 2. Suggest asking ID consult to see if he is remdesivir candidate 3. Agree with empiric abx therapy for now 4. Prone as tolerated during the day and sleep prone at night 5. Wean FiO2 for sats >88% 6. Renal has been consulted and has started fluids. This is not ideal given his current respiratory state but will have to closely monitor. Subjective Date of service: 05/02/20 Principal diagnosis: LALA Interval history: Down to 4 liters NC with good sats. No acute events overnight. Objective Vital Signs - 12hr 05/01/20 05/02/20 05/02/20 23:00 00:10 06:16 Temperature 98.3 F 97.6 F Pulse Rate 99 H 92 H Respiratory 20 20 18 Rate Blood Pressure 192/97 144/80 O2 Sat by Pulse 97 97 Oximetry CBC and BMP: 05/01/20 05:13 05/02/20 04:51 ABG, PT/INR, D-dimer: PT/INR, D-dimer D-Dimer > 72043 ng/mlDDU (0-234) H 04/29/20 07:06 Abnormal lab findings: Abnormal Labs 04/28/20 04/28/20 04/28/20 09:50 09:50 10:49 WBC RBC 3.02 L Hgb 9.7 L Hct 28.3 L MCHC 35 H RDW 12.2 L Plt Count Lymph % (Auto) 8.9 L [place] % (Auto) 11.9 H Eos % (Auto) 4.4 H Lymph # (Auto) 0.9 L [place] # (Auto) 1.2 H Seg Neutrophils % 74.0 H Seg Neutrophils # D-Dimer > 31552 H Sodium 130 L Chloride 93.9 L BUN 34 H Creatinine Glucose 227 H POC Glucose Hemoglobin A1c Ferritin AST ALT Lactate Dehydrogenase C-Reactive Protein Albumin 3.0 L Urine Creatinine Urine Total Protein Coronavirus (PCR) 04/28/20 04/28/20 04/28/20 10:49 10:49 13:48 WBC RBC Hgb Hct MCHC RDW Plt Count Lymph % (Auto) [place] % (Auto) Eos % (Auto) Lymph # (Auto) [place] # (Auto) Seg Neutrophils % Seg Neutrophils # D-Dimer Sodium 131 L Chloride 95.6 L BUN Creatinine Glucose POC Glucose Hemoglobin A1c Ferritin 1467.0 H AST ALT Lactate Dehydrogenase 307 H C-Reactive Protein 13.00 H Albumin Urine Creatinine Urine Total Protein Coronavirus (PCR) 04/28/20 04/28/20 04/29/20 16:07 21:53 07:06 WBC RBC Hgb Hct MCHC RDW Plt Count Lymph % (Auto) [place] % (Auto) Eos % (Auto) Lymph # (Auto) [place] # (Auto) Seg Neutrophils % Seg Neutrophils # D-Dimer > 47164 H Sodium Chloride BUN Creatinine Glucose POC Glucose 359 H 396 H Hemoglobin A1c Ferritin AST ALT Lactate Dehydrogenase C-Reactive Protein Albumin Urine Creatinine Urine Total Protein Coronavirus (PCR) 04/29/20 04/29/20 04/29/20 07:06 07:06 07:06 WBC RBC Hgb Hct MCHC RDW Plt Count Lymph % (Auto) [place] % (Auto) Eos % (Auto) Lymph # (Auto) [place] # (Auto) Seg Neutrophils % Seg Neutrophils # D-Dimer Sodium 131 L Chloride 95.3 L BUN 41 H Creatinine 1.6 H Glucose 460 H POC Glucose Hemoglobin A1c 9.3 H Ferritin 1617.0 H AST ALT Lactate Dehydrogenase 313 H C-Reactive Protein 9.60 H Albumin 3.3 L Urine Creatinine Urine Total Protein Coronavirus (PCR) 04/29/20 04/29/20 04/29/20 07:06 08:06 09:25 WBC 13.6 H RBC 3.15 L Hgb 10.2 L Hct 29.5 L MCHC 35 H RDW 12.3 L Plt Count Lymph % (Auto) 5.6 L [place] % (Auto) 10.3 H Eos % (Auto) Lymph # (Auto) 0.8 L [place] # (Auto) 1.4 H Seg Neutrophils % 83.6 H Seg Neutrophils # 11.4 H D-Dimer Sodium Chloride BUN Creatinine Glucose POC Glucose 410 H Hemoglobin A1c Ferritin AST ALT Lactate Dehydrogenase C-Reactive Protein Albumin Urine Creatinine Urine Total Protein Coronavirus (PCR) Positive A 04/29/20 04/29/20 04/29/20 11:17 14:42 16:52 WBC RBC Hgb Hct MCHC RDW Plt Count Lymph % (Auto) [place] % (Auto) Eos % (Auto) Lymph # (Auto) [place] # (Auto) Seg Neutrophils % Seg Neutrophils # D-Dimer Sodium Chloride BUN Creatinine Glucose POC Glucose 399 H 416 H Hemoglobin A1c Ferritin AST ALT Lactate Dehydrogenase C-Reactive Protein Albumin Urine Creatinine 86.9 H Urine Total Protein 26 H Coronavirus (PCR) 04/29/20 04/30/20 04/30/20 22:12 06:20 06:20 WBC 15.5 H RBC 3.06 L Hgb 9.7 L Hct 28.5 L MCHC RDW 12.2 L Plt Count Lymph % (Auto) 8.9 L [place] % (Auto) 9.2 H Eos % (Auto) Lymph # (Auto) [place] # (Auto) 1.4 H Seg Neutrophils % 81.1 H Seg Neutrophils # 12.5 H D-Dimer Sodium 135 L Chloride BUN 38 H Creatinine 1.5 H Glucose 229 H POC Glucose 374 H Hemoglobin A1c Ferritin AST ALT Lactate Dehydrogenase C-Reactive Protein Albumin 3.1 L Urine Creatinine Urine Total Protein Coronavirus (PCR) 04/30/20 04/30/20 04/30/20 07:29 10:57 16:03 WBC RBC Hgb Hct MCHC RDW Plt Count Lymph % (Auto) [place] % (Auto) Eos % (Auto) Lymph # (Auto) [place] # (Auto) Seg Neutrophils % Seg Neutrophils # D-Dimer Sodium Chloride BUN Creatinine Glucose POC Glucose 201 H 218 H 325 H Hemoglobin A1c Ferritin AST ALT Lactate Dehydrogenase C-Reactive Protein Albumin Urine Creatinine Urine Total Protein Coronavirus (PCR) 04/30/20 05/01/20 05/01/20 21:28 05:13 05:13 WBC 12.0 H RBC 3.00 L Hgb 9.4 L Hct 27.8 L MCHC RDW 12.5 L Plt Count 460 H Lymph % (Auto) 8.2 L [place] % (Auto) 9.8 H Eos % (Auto) Lymph # (Auto) 1.0 L [place] # (Auto) 1.2 H Seg Neutrophils % 81.5 H Seg Neutrophils # 9.8 H D-Dimer Sodium 134 L Chloride BUN 29 H Creatinine 1.4 H Glucose 297 H POC Glucose 426 H Hemoglobin A1c Ferritin AST ALT Lactate Dehydrogenase C-Reactive Protein Albumin 2.9 L Urine Creatinine Urine Total Protein Coronavirus (PCR) 05/01/20 05/01/20 05/01/20 07:43 12:05 16:09 WBC RBC Hgb Hct MCHC RDW Plt Count Lymph % (Auto) [place] % (Auto) Eos % (Auto) Lymph # (Auto) [place] # (Auto) Seg Neutrophils % Seg Neutrophils # D-Dimer Sodium Chloride BUN Creatinine Glucose POC Glucose 242 H 237 H 266 H Hemoglobin A1c Ferritin AST ALT Lactate Dehydrogenase C-Reactive Protein Albumin Urine Creatinine Urine Total Protein Coronavirus (PCR) 05/01/20 05/02/20 05/02/20 21:55 04:51 07:42 WBC RBC Hgb Hct MCHC RDW Plt Count Lymph % (Auto) [place] % (Auto) Eos % (Auto) Lymph # (Auto) [place] # (Auto) Seg Neutrophils % Seg Neutrophils # D-Dimer Sodium 134 L Chloride BUN 27 H Creatinine Glucose 215 H POC Glucose 335 H 159 H Hemoglobin A1c Ferritin AST 63 H ALT 65 H Lactate Dehydrogenase C-Reactive Protein Albumin 3.0 L Urine Creatinine Urine Total Protein Coronavirus (PCR)
[2020-05-02] MEDS: INSULIN GLARGINE 100 UNITS/ML SUB-Q SCH ×2 (09:02→17:57)
[2020-05-02] MEDS: INSULIN REGULAR, HUMAN 100 UNITS/1 ML SUB-Q SCH ×5 (09:02→22:30)
[2020-05-02] MEDS ORDERED: FUROSEMIDE 40 MG/4 ML INJ IV NR (10:15)
--- NOTE | 2020-05-02 10:21 | Progress Note ---
Assessment and Plan Acute Renal Failure secondary to prerenal etiology vs ATN R/O COVID-19 Bilateral Pneumonia Hypertension Diabetes Mellitus Plan: Cr is trending down CXR-showed ground glass opacities concerning for infectious process On IV antibiotics, Remdesivir and steroids Obtain daily weights Monitor I/O's daily Avoid nephrotoxic agents Continue to monitor renal function closely Tadeo ellington MD [phone] Subjective Date of service: 05/02/20 Principal diagnosis: LALA Interval history: on isolation for COVID-19, chart reviewed, oxygen requirement is improving Objective - Vital Signs Vital signs: Vital Signs - 12hr 05/01/20 05/02/20 05/02/20 23:00 00:10 06:16 Temperature 98.3 F 97.6 F Pulse Rate 99 H 92 H Respiratory 20 20 18 Rate Blood Pressure 192/97 144/80 O2 Sat by Pulse 97 97 Oximetry 05/02/20 10:00 Temperature Pulse Rate Respiratory Rate Blood Pressure O2 Sat by Pulse 97 Oximetry - Lab 05/01/20 05:13 05/02/20 04:51 Most recent lab results Calcium 9.4 mg/dL (8.4-10.2) 05/02/20 04:51 Phosphorus 3.70 mg/dL (2.5-4.5) 04/30/20 06:20 Urine Creatinine 86.9 mg/dL (0.1-20.0) H 04/29/20 14:42 Urine Sodium 18 mmol/L 04/29/20 14:42 Urine Total Protein 26 mg/dL (5-11.8) H 04/29/20 14:42 Medications & Allergies - Medications Allergies/Adverse Reactions: Allergies No Known Allergies Allergy (Verified 04/28/20 11:42) Home Medications: Home Medications Medication Instructions Recorded Confirmed Last Taken Type Alogliptin Benzoate [Alogliptin] 25 mg PO DAILY 04/28/20 04/28/20 04/28/20 10:00 History Aspirin [Adult Aspirin] 81 mg PO DAILY 04/28/20 04/28/20 04/28/20 10:00 History Atorvastatin [Lipitor Tab] 40 mg PO DAILY 04/28/20 04/28/20 04/28/20 10:00 History Cholecalciferol Vit D3 [Vitamin D3 2 1000units PO DAILY 04/28/20 04/28/20 04/28/20 10:00 History 1,000 UNIT TAB] Gabapentin [Neurontin] 100 mg PO TID 04/28/20 04/28/20 04/28/20 10:00 History Metformin HCl [metFORMIN ER 500 mg PO BID 04/28/20 04/28/20 Unknown History Osmotic] lisinopriL [Zestril] 20 mg PO QDAY 04/28/20 04/28/20 04/28/20 10:00 History Active Medications: Generic Name Dose Route Start Last Admin Trade Name Freq PRN Reason Stop Dose Admin Acetaminophen 650 mg 04/28/20 23:05 Acetaminophen 325 Mg Tab PO Q6H PRN Pain, Mild (1-3) Ascorbic Acid 500 mg 04/29/20 10:00 05/01/20 10:30 Ascorbic Acid 500 Mg Tab PO 500 mg QDAY MARIA L Administration Dexamethasone 6 mg 05/02/20 10:00 Dexamethasone 4 Mg Tab PO 05/08/20 12:00 DAILY MARIA L Dextrose 50 ml 04/28/20 11:40 Dextrose 50% In Water (25gm) 50 Ml Syringe IV Q30MIN PRN Hypoglycemia Protocol Enoxaparin Sodium 30 mg 04/29/20 10:00 05/01/20 21:20 Enoxaparin 30 Mg/0.3 Ml Inj SUB-Q 30 mg BID MARIA L Administration Protocol Furosemide 40 mg 05/02/20 10:15 Furosemide 40 Mg/4 Ml Inj IV 05/02/20 14:00 ONCE@1015 NR Guaifenesin 10 ml 04/28/20 23:04 04/29/20 16:25 Guaifenesin Dm 200/20 Mg Oral Liqd 10 Ml PO 10 ml Q8HR PRN Administration Cough Hydralazine HCl 10 mg 04/28/20 23:02 04/29/20 17:04 Hydralazine 20 Mg/1 Ml Inj IV 10 mg Q6HR PRN Administration Blood Pressure REMDESIVIR 100 mg/ Sodium 250 mls @ 500 mls/hr 04/30/20 21:00 05/01/20 21:31 Chloride IV 05/03/20 21:29 500 mls/hr Q24HR@2100 MARIA L Administration Insulin Glargine 22 units 04/29/20 18:30 05/02/20 09:02 Insulin Glargine 100 Units/Ml SUB-Q 22 units BIDDIAB MARIA L Administration Insulin Human Regular 0 units 04/29/20 07:30 05/02/20 09:02 Insulin Regular, Human 100 Units/1 Ml SUB-Q 3 units ACHS MARIA L Administration Protocol Sodium Chloride 50 ml 04/29/20 16:30 05/01/20 21:16 Sodium Chloride 0.9% 50 Ml Ivpb IV 05/03/20 21:01 50 ml Q24HR@2100 MARIA L Administration Zinc Sulfate 220 mg 04/29/20 10:00 05/01/20 10:30 Zinc Sulfate 220 Mg Cap PO 220 mg QDAY MARIA L Administration
[2020-05-02] MEDS: ENOXAPARIN 30 MG/0.3 ML INJ SUB-Q SCH ×2 (11:02→21:48)
[2020-05-02] MEDS: DEXAMETHASONE 4 MG TAB PO SCH (11:02)
[2020-05-02] MEDS: ASCORBIC ACID 500 MG TAB PO SCH (11:02)
[2020-05-02] MEDS: ZINC SULFATE 220 MG CAP PO SCH (11:02)
--- NOTE | 2020-05-02 11:30 | Progress Note ---
Assessment and Plan Cultures: SARS CoV2 PCR: positive 04/28/2020 blood culture: No growth A/P: 60-year-old male with diabetes, hypertension: #Bilateral pneumonia: secondary to COVID-19. Elevated D-dimer, CTA negative. Procal is low. #Acute hypoxic respiratory failure: On nasal cannula #LALA #Transaminitis: ?from Remdesivir Recs: -IV/PO Dexamethasone 6 mg daily x 10 days -Continue Remdesivir, D4 -prophylactic anticoagulation based on d-dimer per hospital protocol -trend ferritin, LDH, d-dimer, CRP every 2-3 days for risk stratification and to assess disease progression -continue to wean oxygen, home oxygen evaluation in AM Juana Mejia MD, FACP [facility] ([facility] O: [phone] F: [phone] Subjective Date of service: 05/02/20 Principal diagnosis: LALA Interval history: No fever. Remains on nasal cannula with oxygen weaning. Objective - Exam Narrative Exam: Physical Exam (reviewed in chart to minimize risk of transmission) Constitutional: deferred Head, Ears, Nose: deferred Eyes: deferred Neck: deferred Oral: deferred Cardiovascular: deferred Respiratory: deferred GI: deferred Musculoskeletal: deferred Skin: deferred Hem/Lymphatic: deferred Psych: deferred Neurological: deferred - Constitutional Vitals: Vital Signs Temp Pulse Resp BP Pulse Ox 97.6 F 92 H 18 144/80 97 05/02/20 06:16 05/02/20 06:16 05/02/20 06:16 05/02/20 06:16 05/02/20 10:00 Temperature -Last 24 Hours Temperature 97.6 F Temperature 98.3 F Temperature 98.4 F Temperature 122.0 F - Labs CBC & Chem 7: 05/01/20 05:13 05/02/20 04:51 Labs: Abnormal lab results 05/01/20 05/01/20 05/01/20 Range/Units 12:05 16:09 21:55 Sodium (137-145) mmol/L BUN (9-20) mg/dL Glucose (75-100) mg/dL POC Glucose 237 H 266 H 335 H (70-105) mg/dL AST (5-40) units/L ALT (7-56) units/L Albumin (3.9-5) g/dL 05/02/20 05/02/20 Range/Units 04:51 07:42 Sodium 134 L (137-145) mmol/L BUN 27 H (9-20) mg/dL Glucose 215 H (75-100) mg/dL POC Glucose 159 H (70-105) mg/dL AST 63 H (5-40) units/L ALT 65 H (7-56) units/L Albumin 3.0 L (3.9-5) g/dL
--- NOTE | 2020-05-02 15:28 | Progress Note ---
Assessment and Plan --Acute hypoxic respiratory failure Possible COVID-19 pneumonia. COVID-19 test ordered Continue oxygen supplementation --Bilateral pneumonia Chest x-ray showed bilateral infiltrates suggestive of possible COVID-19 pneumonia Likely COVID-19 pneumonia given symptoms, labs and chest x-ray. COVID-19 test ordered Continue ceftriaxone and azithromycin x5 days. Dexamethasone 6 mg x 10 days ID consulted Pulm consulted Trend inflammatory markers Incentive spirometer Oxygen supplementation-continuous pulse ox Telemetry monitoring --Elevated D-dimer D-dimer more than 10,000. Likely secondary to COVID-19 Started on therapeutic Lovenox but CTA and ultrasound Doppler negative for any clots so we switched to prophylactic dose of Lovenox --Diabetes mellitus, aic 9.3 Patient takes Metformin at home. Hold for now Start lispro sliding scale. Added Lantus Continue to monitor blood glucose closely as patient is on dexamethasone --Hypertension Patient takes lisinopril at home. Hold lisinopril given bump in creatinine --Hyponatremia Patient states that he has been drinking a lot of water Labs reviewed. Urine osmolality normal. Likely SIADH 2/2 lung infection. TSH wnl. Trend sodium levels --LALA Bump in creatinine noted. Secondary to vasomotor nephropathy Hold lisinopril Nephrology consulted --DVT prophylaxis-Lovenox --Full code Brief history: 60-year-old male with a medical history of hypertension, diabetes presented to emergency room with chief complaint of generalized weakness and shortness of breath. Patient states that symptoms started about 2 weeks prior to presentation. He initially started having productive cough, fever, nausea with vomiting, decreased appetite, loss of taste and smell and symptoms started later progressed to problems breathing about a week prior to presentation. Patient had a Covid test performed on Wednesday [04/23] and results still pending as per patient. He mentions that some family members have similar symptoms and they have not been diagnosed with Covid yet as results are still pending. He denies any chest pain or palpitations. Daily course: 04/29/2020. Patient seen and examined at bedside this a.m. He has no complaints. CTA chest and ultrasound Doppler negative for PE. Lovenox switched to prophylactic dose. Pulmonology consulted for respiratory failure. Labs reviewed-creatinine bumped up to 1.6. Hold lisinopril for now. Consulted nephrology. Insulin dose increased due to hyperglycemia. Still awaiting COVID-19 test. Continue ceftriaxone, azithromycin and dexamethasone. Awaiting ID evaluation 22: Patient on dexamethasone and remdesivir, remains on 5 to 6 L nasal cannula O2. Continue to follow inflammatory markers follow BMP. 05/01: cont to follow BMP, inflammatory markers. on 5L O2 today 2/4: Wean off from O2 as tolerated, on 2L today Subjective Date of service: 05/02/20 Principal diagnosis: LALA Objective - Constitutional Vitals: Vital Signs - 12hr 05/02/20 05/02/20 05/02/20 06:16 10:00 11:31 Temperature 97.6 F 97.2 F L Pulse Rate 92 H 97 H Respiratory 18 18 Rate Blood Pressure 144/80 149/85 O2 Sat by Pulse 97 97 90 Oximetry - Labs CBC & Chem 7: 05/01/20 05:13 05/02/20 04:51 Labs: Abnormal lab results 05/01/20 05/01/20 05/02/20 Range/Units 16:09 21:55 04:51 Sodium 134 L (137-145) mmol/L BUN 27 H (9-20) mg/dL Glucose 215 H (75-100) mg/dL POC Glucose 266 H 335 H (70-105) mg/dL AST 63 H (5-40) units/L ALT 65 H (7-56) units/L Albumin 3.0 L (3.9-5) g/dL 05/02/20 05/02/20 Range/Units 07:42 11:31 Sodium (137-145) mmol/L BUN (9-20) mg/dL Glucose (75-100) mg/dL POC Glucose 159 H 174 H (70-105) mg/dL AST (5-40) units/L ALT (7-56) units/L Albumin (3.9-5) g/dL HEART Score - HEART Score Troponin: Troponin T < 0.010 ng/mL (0.00-0.029) 04/28/20 09:50
[2020-05-02] MEDS: REMDESIVIR 100 MG in SODIUM CHLORIDE 0.9% 250ML 250 ML IV SCH (21:47)
[2020-05-02] MEDS: SODIUM CHLORIDE 0.9% 50 ML IVPB IV SCH (21:48)
[2020-05-03] MEDS ORDERED: FUROSEMIDE 40 MG/4 ML INJ IV NR (08:05)
--- NOTE | 2020-05-03 08:10 | Progress Note ---
Assessment and Plan 59 y/o male with acute respiratory failure secondary to abnormal CXR, concern for COVID pneumonia 05/03/20: Continue to wean FiO2 for sats >88%, hopeful can wean to room air. Needs ambulatory test again to assess oxygen needs prior to discharge. Per charting desatted to 85% on yesterday. Continue to prone even if weaned off oxygen. Suggest discharge planning. Will sign off, call if questions. 05/02/20: sTeroids for 10 days. Continue Remdesivir for total of 5 days. Prone as tolerated. 05/01/20: Steroids for 10 days. Continue remdesivir. Follow up renal recs. Please be mindful of fluid status. Prone as tolerate during the day and sleep prone at night. Will follow 04/30/20: No new recs for today. Please see below. 1. Agree with empiric steroids and Isolation 2. Suggest asking ID consult to see if he is remdesivir candidate 3. Agree with empiric abx therapy for now 4. Prone as tolerated during the day and sleep prone at night 5. Wean FiO2 for sats >88% 6. Renal has been consulted and has started fluids. This is not ideal given his current respiratory state but will have to closely monitor. Subjective Date of service: 05/03/20 Principal diagnosis: LALA Interval history: No acute events, weaned down to 1-2 liters of nasal cannula. Good sats. Objective Vital Signs - 12hr 05/02/20 05/02/20 05/02/20 21:55 22:00 23:00 Temperature 98.4 F Pulse Rate 98 H Respiratory 20 20 Rate Blood Pressure 169/85 O2 Sat by Pulse 96 96 Oximetry 05/03/20 04:47 Temperature 98.1 F Pulse Rate 98 H Respiratory 20 Rate Blood Pressure 148/72 O2 Sat by Pulse 94 Oximetry CBC and BMP: 05/01/20 05:13 05/02/20 04:51 ABG, PT/INR, D-dimer: PT/INR, D-dimer D-Dimer > 06761 ng/mlDDU (0-234) H 04/29/20 07:06 Abnormal lab findings: Abnormal Labs 04/28/20 04/28/20 04/28/20 09:50 09:50 10:49 WBC RBC 3.02 L Hgb 9.7 L Hct 28.3 L MCHC 35 H RDW 12.2 L Plt Count Lymph % (Auto) 8.9 L [place] % (Auto) 11.9 H Eos % (Auto) 4.4 H Lymph # (Auto) 0.9 L [place] # (Auto) 1.2 H Seg Neutrophils % 74.0 H Seg Neutrophils # D-Dimer > 21773 H Sodium 130 L Chloride 93.9 L BUN 34 H Creatinine Glucose 227 H POC Glucose Hemoglobin A1c Ferritin AST ALT Lactate Dehydrogenase C-Reactive Protein Albumin 3.0 L Urine Creatinine Urine Total Protein Coronavirus (PCR) 04/28/20 04/28/20 04/28/20 10:49 10:49 13:48 WBC RBC Hgb Hct MCHC RDW Plt Count Lymph % (Auto) [place] % (Auto) Eos % (Auto) Lymph # (Auto) [place] # (Auto) Seg Neutrophils % Seg Neutrophils # D-Dimer Sodium 131 L Chloride 95.6 L BUN Creatinine Glucose POC Glucose Hemoglobin A1c Ferritin 1467.0 H AST ALT Lactate Dehydrogenase 307 H C-Reactive Protein 13.00 H Albumin Urine Creatinine Urine Total Protein Coronavirus (PCR) 04/28/20 04/28/20 04/29/20 16:07 21:53 07:06 WBC RBC Hgb Hct MCHC RDW Plt Count Lymph % (Auto) [place] % (Auto) Eos % (Auto) Lymph # (Auto) [place] # (Auto) Seg Neutrophils % Seg Neutrophils # D-Dimer > 23712 H Sodium Chloride BUN Creatinine Glucose POC Glucose 359 H 396 H Hemoglobin A1c Ferritin AST ALT Lactate Dehydrogenase C-Reactive Protein Albumin Urine Creatinine Urine Total Protein Coronavirus (PCR) 04/29/20 04/29/20 04/29/20 07:06 07:06 07:06 WBC RBC Hgb Hct MCHC RDW Plt Count Lymph % (Auto) [place] % (Auto) Eos % (Auto) Lymph # (Auto) [place] # (Auto) Seg Neutrophils % Seg Neutrophils # D-Dimer Sodium 131 L Chloride 95.3 L BUN 41 H Creatinine 1.6 H Glucose 460 H POC Glucose Hemoglobin A1c 9.3 H Ferritin 1617.0 H AST ALT Lactate Dehydrogenase 313 H C-Reactive Protein 9.60 H Albumin 3.3 L Urine Creatinine Urine Total Protein Coronavirus (PCR) 04/29/20 04/29/20 04/29/20 07:06 08:06 09:25 WBC 13.6 H RBC 3.15 L Hgb 10.2 L Hct 29.5 L MCHC 35 H RDW 12.3 L Plt Count Lymph % (Auto) 5.6 L [place] % (Auto) 10.3 H Eos % (Auto) Lymph # (Auto) 0.8 L [place] # (Auto) 1.4 H Seg Neutrophils % 83.6 H Seg Neutrophils # 11.4 H D-Dimer Sodium Chloride BUN Creatinine Glucose POC Glucose 410 H Hemoglobin A1c Ferritin AST ALT Lactate Dehydrogenase C-Reactive Protein Albumin Urine Creatinine Urine Total Protein Coronavirus (PCR) Positive A 04/29/20 04/29/20 04/29/20 11:17 14:42 16:52 WBC RBC Hgb Hct MCHC RDW Plt Count Lymph % (Auto) [place] % (Auto) Eos % (Auto) Lymph # (Auto) [place] # (Auto) Seg Neutrophils % Seg Neutrophils # D-Dimer Sodium Chloride BUN Creatinine Glucose POC Glucose 399 H 416 H Hemoglobin A1c Ferritin AST ALT Lactate Dehydrogenase C-Reactive Protein Albumin Urine Creatinine 86.9 H Urine Total Protein 26 H Coronavirus (PCR) 04/29/20 04/30/20 04/30/20 22:12 06:20 06:20 WBC 15.5 H RBC 3.06 L Hgb 9.7 L Hct 28.5 L MCHC RDW 12.2 L Plt Count Lymph % (Auto) 8.9 L [place] % (Auto) 9.2 H Eos % (Auto) Lymph # (Auto) [place] # (Auto) 1.4 H Seg Neutrophils % 81.1 H Seg Neutrophils # 12.5 H D-Dimer Sodium 135 L Chloride BUN 38 H Creatinine 1.5 H Glucose 229 H POC Glucose 374 H Hemoglobin A1c Ferritin AST ALT Lactate Dehydrogenase C-Reactive Protein Albumin 3.1 L Urine Creatinine Urine Total Protein Coronavirus (PCR) 04/30/20 04/30/20 04/30/20 07:29 10:57 16:03 WBC RBC Hgb Hct MCHC RDW Plt Count Lymph % (Auto) [place] % (Auto) Eos % (Auto) Lymph # (Auto) [place] # (Auto) Seg Neutrophils % Seg Neutrophils # D-Dimer Sodium Chloride BUN Creatinine Glucose POC Glucose 201 H 218 H 325 H Hemoglobin A1c Ferritin AST ALT Lactate Dehydrogenase C-Reactive Protein Albumin Urine Creatinine Urine Total Protein Coronavirus (PCR) 04/30/20 05/01/20 05/01/20 21:28 05:13 05:13 WBC 12.0 H RBC 3.00 L Hgb 9.4 L Hct 27.8 L MCHC RDW 12.5 L Plt Count 460 H Lymph % (Auto) 8.2 L [place] % (Auto) 9.8 H Eos % (Auto) Lymph # (Auto) 1.0 L [place] # (Auto) 1.2 H Seg Neutrophils % 81.5 H Seg Neutrophils # 9.8 H D-Dimer Sodium 134 L Chloride BUN 29 H Creatinine 1.4 H Glucose 297 H POC Glucose 426 H Hemoglobin A1c Ferritin AST ALT Lactate Dehydrogenase C-Reactive Protein Albumin 2.9 L Urine Creatinine Urine Total Protein Coronavirus (PCR) 05/01/20 05/01/20 05/01/20 07:43 12:05 16:09 WBC RBC Hgb Hct MCHC RDW Plt Count Lymph % (Auto) [place] % (Auto) Eos % (Auto) Lymph # (Auto) [place] # (Auto) Seg Neutrophils % Seg Neutrophils # D-Dimer Sodium Chloride BUN Creatinine Glucose POC Glucose 242 H 237 H 266 H Hemoglobin A1c Ferritin AST ALT Lactate Dehydrogenase C-Reactive Protein Albumin Urine Creatinine Urine Total Protein Coronavirus (PCR) 05/01/20 05/02/20 05/02/20 21:55 04:51 07:42 WBC RBC Hgb Hct MCHC RDW Plt Count Lymph % (Auto) [place] % (Auto) Eos % (Auto) Lymph # (Auto) [place] # (Auto) Seg Neutrophils % Seg Neutrophils # D-Dimer Sodium 134 L Chloride BUN 27 H Creatinine Glucose 215 H POC Glucose 335 H 159 H Hemoglobin A1c Ferritin AST 63 H ALT 65 H Lactate Dehydrogenase C-Reactive Protein Albumin 3.0 L Urine Creatinine Urine Total Protein Coronavirus (PCR) 05/02/20 05/02/20 05/02/20 11:31 15:47 21:55 WBC RBC Hgb Hct MCHC RDW Plt Count Lymph % (Auto) [place] % (Auto) Eos % (Auto) Lymph # (Auto) [place] # (Auto) Seg Neutrophils % Seg Neutrophils # D-Dimer Sodium Chloride BUN Creatinine Glucose POC Glucose 174 H 274 H 335 H Hemoglobin A1c Ferritin AST ALT Lactate Dehydrogenase C-Reactive Protein Albumin Urine Creatinine Urine Total Protein Coronavirus (PCR) 05/03/20 07:35 WBC RBC Hgb Hct MCHC RDW Plt Count Lymph % (Auto) [place] % (Auto) Eos % (Auto) Lymph # (Auto) [place] # (Auto) Seg Neutrophils % Seg Neutrophils # D-Dimer Sodium Chloride BUN Creatinine Glucose POC Glucose 181 H Hemoglobin A1c Ferritin AST ALT Lactate Dehydrogenase C-Reactive Protein Albumin Urine Creatinine Urine Total Protein Coronavirus (PCR)
[2020-05-03] MEDS: INSULIN REGULAR, HUMAN 100 UNITS/1 ML SUB-Q SCH ×2 (08:29→12:25)
--- NOTE | 2020-05-03 09:05 | Progress Note ---
Assessment and Plan Acute Renal Failure secondary to prerenal etiology vs ATN R/O COVID-19 Bilateral Pneumonia Hypertension Diabetes Mellitus Plan: Labs are pending CXR-showed ground glass opacities concerning for infectious process Obtain daily weights Monitor I/O's daily Avoid nephrotoxic agents Continue to monitor renal function closely Tadeo ellington MD [phone] Subjective Date of service: 05/03/20 Principal diagnosis: LALA Interval history: on isolation for COVID-19, chart reviewed Objective - Vital Signs Vital signs: Vital Signs - 12hr 05/02/20 05/02/20 05/02/20 21:55 22:00 23:00 Temperature 98.4 F Pulse Rate 98 H Respiratory 20 20 Rate Blood Pressure 169/85 O2 Sat by Pulse 96 96 Oximetry 05/03/20 05/03/20 04:47 08:56 Temperature 98.1 F Pulse Rate 98 H Respiratory 20 Rate Blood Pressure 148/72 O2 Sat by Pulse 94 94 Oximetry - Lab 05/01/20 05:13 05/02/20 04:51 Most recent lab results Calcium 9.4 mg/dL (8.4-10.2) 05/02/20 04:51 Phosphorus 3.70 mg/dL (2.5-4.5) 04/30/20 06:20 Urine Creatinine 86.9 mg/dL (0.1-20.0) H 04/29/20 14:42 Urine Sodium 18 mmol/L 04/29/20 14:42 Urine Total Protein 26 mg/dL (5-11.8) H 04/29/20 14:42 Medications & Allergies - Medications Allergies/Adverse Reactions: Allergies No Known Allergies Allergy (Verified 04/28/20 11:42) Home Medications: Home Medications Medication Instructions Recorded Confirmed Last Taken Type Alogliptin Benzoate [Alogliptin] 25 mg PO DAILY 04/28/20 04/28/20 04/28/20 10:00 History Aspirin [Adult Aspirin] 81 mg PO DAILY 04/28/20 04/28/20 04/28/20 10:00 History Atorvastatin [Lipitor Tab] 40 mg PO DAILY 04/28/20 04/28/20 04/28/20 10:00 History Cholecalciferol Vit D3 [Vitamin D3 2 1000units PO DAILY 04/28/20 04/28/20 04/28/20 10:00 History 1,000 UNIT TAB] Gabapentin [Neurontin] 100 mg PO TID 04/28/20 04/28/20 04/28/20 10:00 History Metformin HCl [metFORMIN ER 500 mg PO BID 04/28/20 04/28/20 Unknown History Osmotic] lisinopriL [Zestril] 20 mg PO QDAY 04/28/20 04/28/20 04/28/20 10:00 History Active Medications: Generic Name Dose Route Start Last Admin Trade Name Freq PRN Reason Stop Dose Admin Acetaminophen 650 mg 04/28/20 23:05 Acetaminophen 325 Mg Tab PO Q6H PRN Pain, Mild (1-3) Ascorbic Acid 500 mg 04/29/20 10:00 05/02/20 11:02 Ascorbic Acid 500 Mg Tab PO 500 mg QDAY MARIA L Administration Dexamethasone 6 mg 05/02/20 10:00 05/02/20 11:02 Dexamethasone 4 Mg Tab PO 05/08/20 12:00 6 mg DAILY MARIA L Administration Dextrose 50 ml 04/28/20 11:40 Dextrose 50% In Water (25gm) 50 Ml Syringe IV Q30MIN PRN Hypoglycemia Protocol Enoxaparin Sodium 30 mg 04/29/20 10:00 05/02/20 21:48 Enoxaparin 30 Mg/0.3 Ml Inj SUB-Q 30 mg BID MARIA L Administration Protocol Furosemide 40 mg 05/03/20 08:05 Furosemide 40 Mg/4 Ml Inj IV 05/03/20 10:00 ONCE NR Guaifenesin 10 ml 04/28/20 23:04 04/29/20 16:25 Guaifenesin Dm 200/20 Mg Oral Liqd 10 Ml PO 10 ml Q8HR PRN Administration Cough Hydralazine HCl 10 mg 04/28/20 23:02 04/29/20 17:04 Hydralazine 20 Mg/1 Ml Inj IV 10 mg Q6HR PRN Administration Blood Pressure REMDESIVIR 100 mg/ Sodium 250 mls @ 500 mls/hr 04/30/20 21:00 05/02/20 21:47 Chloride IV 05/03/20 21:29 500 mls/hr Q24HR@2100 MARIA L Administration Insulin Glargine 22 units 04/29/20 18:30 05/02/20 17:57 Insulin Glargine 100 Units/Ml SUB-Q 22 units BIDDIAB MARIA L Administration Insulin Human Regular 0 units 02/01/21 07:30 05/03/20 08:29 Insulin Regular, Human 100 Units/1 Ml SUB-Q 3 units ACHS MARIA L Administration Protocol Sodium Chloride 50 ml 04/29/20 16:30 05/02/20 21:48 Sodium Chloride 0.9% 50 Ml Ivpb IV 05/03/20 21:01 50 ml Q24HR@2100 MARIA L Administration Zinc Sulfate 220 mg 04/29/20 10:00 05/02/20 11:02 Zinc Sulfate 220 Mg Cap PO 220 mg QDAY MARIA L Administration
[2020-05-03] MEDS: INSULIN GLARGINE 100 UNITS/ML SUB-Q SCH (09:22)
[2020-05-03] MEDS: DEXAMETHASONE 4 MG TAB PO SCH (09:22)
[2020-05-03] MEDS: ENOXAPARIN 30 MG/0.3 ML INJ SUB-Q SCH (09:22)
[2020-05-03] MEDS: ZINC SULFATE 220 MG CAP PO SCH (09:22)
[2020-05-03] MEDS: ASCORBIC ACID 500 MG TAB PO SCH (09:22)
--- NOTE | 2020-05-03 11:57 | Discharge Summary ---
Providers - Providers Date of Admission: 04/29/20 15:30 Date of discharge: 05/03/20 Attending physician: REINALDO PEMBERTON 04/28/20 12:29 Consult to Physician [CONS] Routine Comment: Consulting Provider: ADDIS NIELSEN Physician Instructions: Reason For Exam: Possible COVID (PUI) 04/29/20 09:17 Consult to Physician [CONS] Routine Comment: Consulting Provider: ROYER VÁZQUEZ Physician Instructions: Reason For Exam: LALA Primary care physician: PITER DE GUZMAN RN Hospitalization Condition: Serious Disposition: DC/[place]-06 HOME UNDER [facility] Time spent for discharge: 34 minutes Core Measure Documentation - Palliative Care Palliative Care/ Comfort Measures: Not Applicable - Core Measures Any of the following diagnoses?: none Exam - Constitutional Vitals: Temp Pulse Resp BP Pulse Ox 98.1 F 98 H 20 148/72 94 05/03/20 04:47 05/03/20 04:47 05/03/20 04:47 05/03/20 04:47 05/03/20 08:56 Plan Activity: advance as tolerated Weight Bearing Status: Weight Bear as Tolerated Diet: low fat, low salt, diabetic Special Instructions: record blood sugar diary, home oxygen via (2l n/c) Follow up with: PITER DE GUZMAN, CONCEPCIÓN [Primary Care Provider] - 3-5 Days Prescriptions: dexAMETHasone [Decadron] 6 mg PO DAILY #5 tablet Apixaban [Eliquis] 5 mg PO Q12HR #10 tablet guaiFENesin DM [Guaifenesin Dm Syrup] 10 ml PO Q8HR PRN #1 vial PRN Reason: Cough Insulin Regular, Human [HumuLIN R] 0 units SUB-Q ACHS #1 vial Albuterol Mdi (or & Nicu Only) [ProAir HFA Inhaler] 2 puff IH QID PRN #8.5 gram PRN Reason: Shortness Of Breath Ascorbic Acid [Vitamin C] 500 mg PO QDAY #10 tablet Zinc Sulfate 220 mg PO QDAY #10 capsule
--- NOTE | 2020-05-03 12:08 | Progress Note ---
Assessment and Plan Cultures: SARS CoV2 PCR: positive 04/28/2020 blood culture: No growth A/P: 60-year-old male with diabetes, hypertension: #Bilateral pneumonia: secondary to COVID-19. Elevated D-dimer, CTA negative. Procal is low. #Acute hypoxic respiratory failure: On nasal cannula #LALA #Transaminitis: ?from Remdesivir Recs: -IV/PO Dexamethasone 6 mg daily x 10 days -Continue Remdesivir, D5 -agree with discharge on home oxygen Juana Mejia MD, FACP [facility], [place], [facility] O: [phone] F: [phone] Subjective Date of service: 05/03/20 Principal diagnosis: LALA Interval history: No fever. Remains on nasal cannula. Objective - Exam Narrative Exam: Physical Exam (reviewed in chart to minimize risk of transmission) Constitutional: deferred Head, Ears, Nose: deferred Eyes: deferred Neck: deferred Oral: deferred Cardiovascular: deferred Respiratory: deferred GI: deferred Musculoskeletal: deferred Skin: deferred Hem/Lymphatic: deferred Psych: deferred Neurological: deferred - Constitutional Vitals: Vital Signs Temp Pulse Resp BP Pulse Ox 98.1 F 98 H 20 148/72 94 05/03/20 04:47 05/03/20 04:47 05/03/20 04:47 05/03/20 04:47 05/03/20 08:56 Temperature -Last 24 Hours Temperature 98.1 F Temperature 98.4 F Temperature 98.4 F - Labs CBC & Chem 7: 05/01/20 05:13 05/02/20 04:51 Labs: Abnormal lab results 05/02/20 05/02/20 05/02/20 Range/Units 11:31 15:47 21:55 POC Glucose 174 H 274 H 335 H (70-105) mg/dL 05/03/20 05/03/20 Range/Units 07:35 11:50 POC Glucose 181 H 211 H (70-105) mg/dL
[2020-05-03 12:54] VITALS: BP 149/84
[2020-05-03] MEDS ORDERED: SODIUM CHLORIDE 0.9% 50 ML IVPB IV ONE (14:00)
[2020-05-03] MEDS: REMDESIVIR 100 MG in SODIUM CHLORIDE 0.9% 250ML 250 ML IV ONE ×2 (14:45→14:55)
[2020-05-03] MEDS ORDERED: APIXABAN 5 MG TAB PO SCH (22:00)
== END 2020-05-03 17:00 | disposition home health service (06) | DRG 177 ==
LOC: ED 08:50 → 3A 10:47 → OBSVTOIN 04-29 15:30
PROVIDERS: ADMIT Internal Medicine; ATTEND Internal Medicine
PROC: XW033E5 Introduction of Remdesivir Anti-infective into Peripheral Vein, Percutaneous Approach, New Technology Group 5 (ICD-10-PCS; principal; 2020-04-29)
DX: U07.1 COVID-19 (principal); J96.01 Acute respiratory failure with hypoxia; N17.0 Acute kidney failure with tubular necrosis; J12.82 Pneumonia due to coronavirus disease 2019; E87.1 Hypo-osmolality and hyponatremia; E11.9 Type 2 diabetes mellitus without complications; R74.01 Elevation of levels of liver transaminase levels; I10 Essential (primary) hypertension; Z79.899 Other long term (current) drug therapy
CPT/HCPCS: 36415; 71045; 71275; 80051; 80053; 82570; 82728; 82962; 83036; 83615; 83930; 83935; 84100; 84145; 84156; 84300; 84443; 84484; 85025; 85379; 86140; 87040; 89050; 93005; 93970; 94760; 96365; 96375; G0378; J0360; J0456; J0696; J1100; J1650; J1815; J1940; J2405; J2930; J7030; J8540; Q9967; U0003

== ENCOUNTER 2021-10-13 09:23 | Emergency (ER) | payer BC, OTHER ==
[2021-10-13 09:28] VITALS: BP 220/100
--- NOTE | 2021-10-13 10:10 | Emergency Department Report ---
ED ENT HPI - General Chief complaint: Dental/Oral Stated complaint: TOOTH PAIN Time Seen by Provider: 10/13/21 10:09 Source: patient Mode of arrival: Ambulatory Limitations: No Limitations - History of Present Illness Initial comments: Patient is a 61-year-old male that comes to the emergency room with right lower wisdom tooth pain. Patient denies difficulty swallowing. Denies fever or chills. Patient admits to taking some Goody powder prior to admission to the ER but that has not worked. He has not seen a dentist. MD complaint: tooth pain -: Gradual, days(s) Severity: moderate Quality: aching Consistency: constant Improves with: none Worsens with: none Context- Dental: history of dental caries Associated Symptoms: toothache. denies: fever, cough, gum swelling, pain with swallowing, sore throat, tinnitus, hearing loss, discharge from ear, rhinorrhea - Related Data Home Medications Medication Instructions Recorded Confirmed Last Taken Alogliptin Benzoate [Alogliptin] 25 mg PO DAILY 04/28/20 04/28/20 04/28/20 10:00 Aspirin [Adult Aspirin] 81 mg PO DAILY 04/28/20 04/28/20 04/28/20 10:00 Atorvastatin [Lipitor] 40 mg PO DAILY 04/28/20 04/28/20 04/28/20 10:00 Cholecalciferol Vit D3 [Vitamin D3 2 1000units PO DAILY 04/28/20 04/28/20 04/28/20 10:00 1,000 UNIT TAB] Gabapentin 100 mg PO TID 04/28/20 04/28/20 04/28/20 10:00 Metformin HCl [metFORMIN ER 500 mg PO BID 04/28/20 04/28/20 Unknown Osmotic] lisinopriL [Zestril TAB] 20 mg PO QDAY 04/28/20 04/28/20 04/28/20 10:00 Previous Rx's Medication Instructions Recorded Last Taken Type Albuterol Mdi (or & Nicu Only) 2 puff IH QID PRN #8.5 gram 05/03/20 Unknown Rx [ProAir HFA Inhaler] Apixaban [Eliquis] 5 mg PO Q12HR #10 tablet 05/03/20 Unknown Rx Ascorbic Acid [Vitamin C] 500 mg PO QDAY #10 tablet 05/03/20 Unknown Rx Insulin Regular, Human [HumuLIN R] 0 units SUB-Q ACHS #1 vial 05/03/20 Unknown Rx Zinc Sulfate 220 mg PO QDAY #10 capsule 05/03/20 Unknown Rx dexAMETHasone [Decadron] 6 mg PO DAILY #5 tablet 05/03/20 Unknown Rx guaiFENesin DM [Guaifenesin Dm 10 ml PO Q8HR PRN #1 vial 05/03/20 Unknown Rx Syrup] Clindamycin [Clindamycin CAP] 300 mg PO Q8H #30 cap 10/13/21 Unknown Rx traMADoL [Ultram] 50 mg PO Q6HR PRN #10 tablet 10/13/21 Unknown Rx Allergies Allergy/AdvReac Type Severity Reaction Status Date / Time No Known Allergies Allergy Verified 04/28/20 11:42 ED Dental HPI - General Chief complaint: Dental/Oral Stated complaint: TOOTH PAIN Time Seen by Provider: 10/13/21 10:09 Source: patient Mode of arrival: Ambulatory Limitations: No Limitations - Related Data Home Medications Medication Instructions Recorded Confirmed Last Taken Alogliptin Benzoate [Alogliptin] 25 mg PO DAILY 04/28/20 04/28/20 04/28/20 10:00 Aspirin [Adult Aspirin] 81 mg PO DAILY 04/28/20 04/28/20 04/28/20 10:00 Atorvastatin [Lipitor] 40 mg PO DAILY 04/28/20 04/28/20 04/28/20 10:00 Cholecalciferol Vit D3 [Vitamin D3 2 1000units PO DAILY 04/28/20 04/28/20 04/28/20 10:00 1,000 UNIT TAB] Gabapentin 100 mg PO TID 04/28/20 04/28/20 04/28/20 10:00 Metformin HCl [metFORMIN ER 500 mg PO BID 04/28/20 04/28/20 Unknown Osmotic] lisinopriL [Zestril TAB] 20 mg PO QDAY 04/28/20 04/28/20 04/28/20 10:00 Previous Rx's Medication Instructions Recorded Last Taken Type Albuterol Mdi (or & Nicu Only) 2 puff IH QID PRN #8.5 gram 05/03/20 Unknown Rx [ProAir HFA Inhaler] Apixaban [Eliquis] 5 mg PO Q12HR #10 tablet 05/03/20 Unknown Rx Ascorbic Acid [Vitamin C] 500 mg PO QDAY #10 tablet 05/03/20 Unknown Rx Insulin Regular, Human [HumuLIN R] 0 units SUB-Q ACHS #1 vial 05/03/20 Unknown Rx Zinc Sulfate 220 mg PO QDAY #10 capsule 05/03/20 Unknown Rx dexAMETHasone [Decadron] 6 mg PO DAILY #5 tablet 05/03/20 Unknown Rx guaiFENesin DM [Guaifenesin Dm 10 ml PO Q8HR PRN #1 vial 05/03/20 Unknown Rx Syrup] Clindamycin [Clindamycin CAP] 300 mg PO Q8H #30 cap 10/13/21 Unknown Rx traMADoL [Ultram] 50 mg PO Q6HR PRN #10 tablet 10/13/21 Unknown Rx Allergies Allergy/AdvReac Type Severity Reaction Status Date / Time No Known Allergies Allergy Verified 04/28/20 11:42 ED Review of Systems ROS: Stated complaint: TOOTH PAIN Other details as noted in HPI Comment: All other systems reviewed and negative ED Past Medical Hx - Past Medical History Previous Medical History?: Yes Hx Hypertension: Yes Hx Diabetes: Yes Additional medical history: Glaucoma - Surgical History Past Surgical History?: No - Family History Family history: no significant - Social History Smoking Status: Never Smoker Substance Use Type: None - Medications Home Medications: Home Medications Medication Instructions Recorded Confirmed Last Taken Type Alogliptin Benzoate [Alogliptin] 25 mg PO DAILY 04/28/20 04/28/20 04/28/20 10:00 History Aspirin [Adult Aspirin] 81 mg PO DAILY 04/28/20 04/28/20 04/28/20 10:00 History Atorvastatin [Lipitor] 40 mg PO DAILY 04/28/20 04/28/20 04/28/20 10:00 History Cholecalciferol Vit D3 [Vitamin D3 2 1000units PO DAILY 04/28/20 04/28/20 04/28/20 10:00 History 1,000 UNIT TAB] Gabapentin 100 mg PO TID 04/28/20 04/28/20 04/28/20 10:00 History Metformin HCl [metFORMIN ER 500 mg PO BID 04/28/20 04/28/20 Unknown History Osmotic] lisinopriL [Zestril TAB] 20 mg PO QDAY 04/28/20 04/28/20 04/28/20 10:00 History Albuterol Mdi (or & Nicu Only) 2 puff IH QID PRN #8.5 gram 05/03/20 Unknown Rx [ProAir HFA Inhaler] Apixaban [Eliquis] 5 mg PO Q12HR #10 tablet 05/03/20 Unknown Rx Ascorbic Acid [Vitamin C] 500 mg PO QDAY #10 tablet 05/03/20 Unknown Rx Insulin Regular, Human [HumuLIN R] 0 units SUB-Q ACHS #1 vial 05/03/20 Unknown Rx Zinc Sulfate 220 mg PO QDAY #10 capsule 05/03/20 Unknown Rx dexAMETHasone [Decadron] 6 mg PO DAILY #5 tablet 05/03/20 Unknown Rx guaiFENesin DM [Guaifenesin Dm 10 ml PO Q8HR PRN #1 vial 05/03/20 Unknown Rx Syrup] Clindamycin [Clindamycin CAP] 300 mg PO Q8H #30 cap 10/13/21 Unknown Rx traMADoL [Ultram] 50 mg PO Q6HR PRN #10 tablet 10/13/21 Unknown Rx ED Physical Exam - General Limitations: No Limitations General appearance: alert, in no apparent distress - Head Head exam: Present: atraumatic, normocephalic - Eye Eye exam: Present: normal appearance - ENT ENT exam: Present: mucous membranes moist - Expanded ENT Exam Expanded Mouth exam: Absent: drooling, trismus, muffled voice Teeth exam: Present: dental caries 1 - Other - Neck Neck exam: Present: normal inspection - Respiratory Respiratory exam: Present: normal lung sounds bilaterally. Absent: respiratory distress - Cardiovascular Cardiovascular Exam: Present: regular rate, normal rhythm. Absent: systolic murmur, diastolic murmur, rubs, gallop - GI/Abdominal GI/Abdominal exam: Present: soft, normal bowel sounds - Rectal Rectal exam: Present: deferred - Extremities Exam Extremities exam: Present: normal inspection - Back Exam Back exam: Present: normal inspection - Neurological Exam Neurological exam: Present: alert, oriented X3 - Psychiatric Psychiatric exam: Present: normal affect, normal mood - Skin Skin exam: Present: warm, dry, intact, normal color. Absent: rash ED Course Vital Signs 10/13/21 10/13/21 09:25 10:26 Temperature 99.6 F Pulse Rate 98 H Respiratory 14 Rate Blood Pressure 220/100 O2 Sat by Pulse 97 100 Oximetry ED Medical Decision Making - Medical Decision Making ABCs intact. No trismus. No abscess. Taking p.o. Controlling secretions. Vital Signs 10/13/21 10/13/21 09:25 10:26 Temperature 99.6 F Pulse Rate 98 H Respiratory 14 Rate Blood Pressure 220/100 O2 Sat by Pulse 97 100 Oximetry Patient being discharged home with discharge plan of care including diet, activity, medications and follow-up. Patient verbalizes understanding of plan of care. - Differential Diagnosis CARIES Critical care attestation.: If time is entered above; I have spent that time in minutes in the direct care of this critically ill patient, excluding procedure time. ED Disposition Clinical Impression: Pain, dental Disposition: HOME / SELF CARE / HOMELESS Is pt being admited?: No Does the pt Need Aspirin: No Condition: Stable Instructions: Acute Pain, Adult Additional Instructions: MEDS ORDERED UNTIL GONE FOLLOW UP WITH DENTIST [facility] REFERRALS BELOW MOTRIN OR TYLENOL FOR PAIN OVER THE COUNTER ULTRAM FOR SEVERE PAIN [facility] Prescriptions: Clindamycin [Clindamycin CAP] 300 mg PO Q8H #30 cap traMADoL [Ultram] 50 mg PO Q6HR PRN #10 tablet PRN Reason: Pain Referrals: [facility] [Outside] - 3[facility]5 Days [facility] [Outside] - 3-5 Days Time of Disposition: 10:12
== END 2021-10-13 10:28 | disposition home or self-care (01) ==
LOC: ED 09:23
DX: K08.89 Other specified disorders of teeth and supporting structures (principal); I10 Essential (primary) hypertension; E11.9 Type 2 diabetes mellitus without complications
CPT/HCPCS: 99282